=== PATIENT | male | born 1945 | race Hispanic/Latino ===

== ENCOUNTER 2020-06-13 14:12 | Inpatient (IN) | payer MEDICARE, OTHER ==
[2020-06-13 14:28] LABS: Hematocrit 40.2 % (35.5-45.6); Hemoglobin 12.8 gm/dl (11.8-15.2); Mean Corpuscular HGB Conc 32 % (32-34); Mean Corpuscular Volume 101 fl (84-94); Platelet Count 207 K/mm3 (140-440); Red Blood Count 3.98 M/mm3 (3.65-5.03); Red Cell Distribution Width 19.1 % (13.2-15.2)
[2020-06-13 14:36] LABS: Basophils # (Auto) 0.1 K/mm3 (0.0-0.1); Eosinophils # (Auto) 0.3 K/mm3 (0.0-0.4); Monocytes # (Auto) 0.8 K/mm3 (0.0-0.8); Monocytes % (Auto) 6.1 % (0.0-7.3)
[2020-06-13 14:37] LABS: INR 1.36 (0.87-1.13)
[2020-06-13 14:38] LABS: Partial Thromboplastin Time 48.3 Sec. (24.2-36.6)
[2020-06-13 14:46] LABS: Alanine Aminotransferase 35 units/L (7-56); Albumin 2.7 g/dL (3.9-5); BUN/Creatinine Ratio 12; Blood Urea Nitrogen 18 mg/dL (9-20); Calcium 8.4 mg/dL (8.4-10.2); Hemolysis Index 53
--- NOTE | 2020-06-13 14:47 | Emergency Department Report ---
ED CPR HPI - General Stated Complaint: CARDIAC ARREST Time Seen by Provider: 06/13/20 14:14 - History of Present Illness Initial Comments: Patient is 74-year-old male with unknown past medical history. Patient brought to the emergency room via EMS from a local gas station in a full cardiac arrest. EMS stated that patient went to the [facility] and collapse all of a sudden. EMS stated that initially patient is asystole but they informed that the patient has been shocked twice and get amiodarone 300 mg. Unclear if the patient went into V. fib or V. tach for arrest. Patient regained his circulation after the second shock. Upon arrival to the ER patient became pulseless again with monitoring showing PEA. ACLS protocol continued in the emergency room. Intubation confirmed by me with good breath sound on both sides. Patient able to regain his pulse for a few minutes and lost again. ACLS continued and patient regained his pulse for the third time. Patient started on amiodarone. Right internal jugular central vein placed by me and patient started on Levophed. For further information please refer to code sheet. Complaint: collapsed during activity Place: other (Gas-distention) Bystander CPR Performed: No AED Applied by Bystander/Review Nurse: No Downtime Before ACLS Arrival (mins): 6 Initial Findings in the Field: no pulse, systole ROSC in the Field: Yes Associated Injuries: No Treatments Prior to Arrival: intubation, defribrillated shocks # ED Review of Systems ROS: Stated complaint: CARDIAC ARREST Other details as noted in HPI Comment: Unobtainable due to pts medical conditions ED Physical Exam - General General appearance: other (CPR in progress.) - Head Head exam: Present: atraumatic - Eye Pupils: Present: other (4 mm fixed and dilated.) - Respiratory Respiratory exam: Present: other (No spontaneous breathing.) - Cardiovascular Cardiovascular Exam: Present: other (No spontaneous heart tone.) ED Course Vital Signs 06/13/20 14:40 Pulse Rate 86 Blood Pressure 153/63 O2 Sat by Pulse 91 Oximetry - Central Line Placement Right IJ Consent Obtained: emergent situation Time Out Performed: Yes Patient Placed on Monitor/Pulse Ox: Yes Prep: mask, gown, gloves Central Line Prep: Povidone-Iodine 1%, Chlorhexidine scrub, sterile drapes applied Local Anesthesia Used: Lidocaine 1% Ultrasound Used for Placement: Yes Central Line Lumen Inserted: triple Bloods Obtained for Lab: Yes Central Line Position: good blood return, all ports aspirated, flus, sutured in place with 2-0 Dressing Applied: Tegaderm, sterile gauze/tape Post Procedure X-Ray: tip of catheter in good p Patient Tolerated Procedure: well, no complications Complications: none ED Medical Decision Making - Lab Data Result diagrams: 06/13/20 14:20 06/13/20 14:20 - EKG Data -: EKG Interpreted by Me EKG shows normal: sinus rhythm Rate: tachycardia - EKG Data Interpretation: no acute changes - Radiology Data Radiology results: report reviewed - Medical Decision Making Patient is 74-year-old male with unknown past medical history. Patient brought to the emergency room via EMS from a local gas station in a full cardiac arrest. 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 EMS stated that initially patient is asystole but they informed that the patient has been shocked twice and get amiodarone 300 mg. Unclear if the patient went into V. fib or V. tach for arrest. Patient regained his circulation after the second shock. Upon arrival to the ER patient became pulseless again with monitoring showing PEA. ACLS protocol continued in the emergency room. Intubation confirmed by me with good breath sound on both sides. Patient able to regain his pulse for a few minutes and lost again. ACLS continued and patient regained his pulse for the third time. Patient started on amiodarone. Right internal jugular central vein placed by me and patient started on Levophed. For further information please refer to code sheet. Labs reviewed and is unremarkable. CT brain is pending. I discussed the patient with Dr. Dobson, he agreed to admit the patient to medical service. Critical Care Time: Yes Critical care time in (mins) excluding proc time.: 45 Critical care attestation.: If time is entered above; I have spent that time in minutes in the direct care of this critically ill patient, excluding procedure time. ED Disposition Clinical Impression: Cardiopulmonary arrest Disposition: OP ADMIT IP TO THIS HOSP Is pt being admited?: Yes Condition: Stable Referrals: PRIMARY CARE, [Primary Care Provider] - 3-5 Days
[2020-06-13 14:48] LABS: Bilirubin,Direct < 0.2 mg/dL (0-0.2)
[2020-06-13] MEDS ORDERED: LIP THERAPY VASELINE TP PRN (15:11)
[2020-06-13] MEDS ORDERED: MINERAL OIL/PETROLATUM, WHITE OPHTH OINT 3.5 GM OU PRN (15:11)
[2020-06-13] MEDS: NORepinephrine/NS 4 MG-250 ML 4 MG/250 ML BAG IV SCH (15:51)
--- NOTE | 2020-06-13 15:51 | XRay Report ---
CHEST 1 VIEW 06/13/2020 2:32 PM INDICATION / CLINICAL INFORMATION: ETT placement/RIGHT IJ CENTRAL ILINE. COMPARISON: None available. FINDINGS: SUPPORT DEVICES: Endotracheal tube and right IJ central venous catheter in satisfactory position. No pneumothorax. HEART / MEDIASTINUM: No significant abnormality. LUNGS / PLEURA: Mild diffuse bilateral interstitial disease. No localized infiltrate or pleural fluid . ADDITIONAL FINDINGS: Prominent gastric distention. IMPRESSION: 1. Lines and tubes in satisfactory position. 2. Increased interstitial markings bilaterally. It is uncertain if this is an acute process or repres ents chronic change. Signer Name: Richard Belcher MD Signed: 06/13/2020 3:46 PM Workstation Name: [id number]
[2020-06-13 16:00] LABS: Basophils % (Manual) 0 % (0.0-1.8); Total Cells Counted 100
[2020-06-13] MEDS ORDERED: AMIODARONE 900 MG in DEXTROSE 5% IN WATER 482 ML IV SCH (16:00)
[2020-06-13 16:01] LABS: Anisocytosis RARE
[2020-06-13 16:35] LABS: ABG Base Excess -10.9 mmol/L (-2.0-3.0); ABG HCO3 16.2 mmol/L (20.0-26.0); ABG Methemoglobin 0.4 % (0.0-1.5); ABG Oxygen Saturation 95.3 % (95.0-99.0); ABG PCO2 40.2 mm Hg; ABG PH 7.222 pH Units (7.350-7.450)
[2020-06-13 18:27] LABS: Chol/HDL Ratio 2.2 %
--- NOTE | 2020-06-13 19:17 | History and Physical Report ---
History of Present Illness Date of examination: 06/13/20 Date of admission: 06/13/20 15:46 Chief complaint: Cardiac arrest [place] History of present illness: Patient is 74-year-old male with unknown past medical history. Patient brought to the emergency room via EMS from a local gas station in a full cardiac arrest. EMS stated that patient went to the [facility] and collapse all of a sudden. EMS stated that initially patient is asystole but they informed that the patient has been shocked twice and get amiodarone 300 mg. Unclear if the patient went into V. fib or V. tach for arrest. Patient regained his circulation after the second shock. Upon arrival to the ER patient became pulseless again with monitoring showing PEA. ACLS protocol continued in the emergency room. Intubation confirmed by me with good breath sound on both sides. Patient able to regain his pulse for a few minutes and lost again. ACLS continued and patient regained his pulse for the third time. Patient started on amiodarone. Right internal jugular central vein placed by ED physician Dr Slater and patient started on Levophed. For further information please refer to code sheet. MD Complaint: collapsed during activity Place: other (Gas-distention) Bystander CPR Performed: No AED Applied by Bystander/Crib Tender: No Downtime Before ACLS Arrival (mins): 6 Initial Findings in the Field: no pulse, systole ROSC in the Field: Yes Associated Injuries: No Treatments Prior to Arrival: intubation, defribrillated shocks # Past History Past Medical History: other (Not available) Past Surgical History: Other (Not availabke) Social history: lives with family, full code Family history: other (Not available) Medications and Allergies Allergies Allergy/AdvReac Type Severity Reaction Status Date / Time Unable to Assess Allergy Unverified 06/13/20 17:34 Active Meds: Active Medications Hydrophilic Ointment (Vaseline Lip Therapy) 1 applic TP Q2HR PRN PRN Reason: Dry Lips Propofol (Propofol) 500 mg in 50 mls @ 0 mls/hr IV TITR DARREN; Protocol Norepinephrine (Levophed Drip 4 Mg/Ns 250 Ml) 4 mg in 250 mls @ 7.5 mls/hr IV TITR DARREN; Protocol Last Admin: 06/13/20 15:51 Dose: 2 mcg/min, 7.5 mls/hr Documented by: Amiodarone HCl 900 mg/ (Dextrose) 500 mls @ 33.333 mls/hr IV DIRECT DARREN; Protocol Multi-Ingred Cream/Lotion/Oil/Oint (Artificial Tears Ophth Oint) 1 applic OU Q4HR PRN PRN Reason: Dry Eye(s) Review of Systems All systems: negative Cardiovascular: other (Cardiac arrest in gas station and rvived by Ems and ED in [facility]) Neurological: other (Jerky movements ) Exam - Constitutional Vitals: Temp Pulse Resp BP Pulse Ox 92 H 36 H 96/48 95 06/13/20 18:16 06/13/20 18:16 06/13/20 18:16 06/13/20 18:16 General appearance: Present: severe distress (Patient intubated), well-nourished - Neck Neck: Present: supple, normal ROM - Respiratory Respiratory effort: normal Respiratory: bilateral: CTA - Cardiovascular Heart rate: 120 Rhythm: regular Heart Sounds: Present: S1 & S2. Absent: rub, click - Extremities Extremities: pulses symmetrical, No edema Peripheral Pulses: within normal limits - Abdominal General gastrointestinal: Present: soft, non-tender, non-distended, normal bowel sounds Male genitourinary: Present: normal - Integumentary Integumentary: Present: clear, warm, dry - Musculoskeletal Musculoskeletal: gait normal, strength equal bilaterally - Psychiatric Psychiatric: appropriate mood/affect, intact judgment & insight - Neurologic Neurologic: CNII-XII intact, moves all extremities HEART Score - HEART Score History: Highly suspicious EKG: Non-specific Age: > 65 Troponin: Troponin T 0.062 ng/mL (0.00-0.029) H D 06/13/20 16:52 Troponin: 1-3x normal limit Results - Labs CBC & Chem 7: 06/14/20 00:14 06/13/20 14:20 Labs: Laboratory Last Values WBC 14.1 K/mm3 (4.5-11.0) H 06/13/20 14:20 RBC 3.98 M/mm3 (3.65-5.03) 06/13/20 14:20 Hgb 12.8 gm/dl (11.8-15.2) 06/13/20 14:20 Hct 40.2 % (35.5-45.6) 06/13/20 14:20 MCV 101 fl (84-94) H 06/13/20 14:20 MCH 32 pg (28-32) 06/13/20 14:20 MCHC 32 % (32-34) 06/13/20 14:20 RDW 19.1 % (13.2-15.2) H 06/13/20 14:20 Plt Count 207 K/mm3 (140-440) 06/13/20 14:20 [place] % (Auto) 6.1 % (0.0-7.3) 06/13/20 14:20 Eos % (Auto) 2.0 % (0.0-4.3) 06/13/20 14:20 [place] # (Auto) 0.8 K/mm3 (0.0-0.8) 06/13/20 14:20 Eos # (Auto) 0.3 K/mm3 (0.0-0.4) 06/13/20 14:20 Baso # (Auto) 0.1 K/mm3 (0.0-0.1) 06/13/20 14:20 Add Manual Diff Complete 06/13/20 14:20 Total Counted 100 06/13/20 14:20 Seg Neutrophils % 59.0 % (40.0-70.0) 06/13/20 14:20 Seg Neuts % (Manual) 64.0 % (40.0-70.0) 06/13/20 14:20 Band Neutrophils % 0 % 06/13/20 14:20 Lymphocytes % (Manual) 30.0 % (13.4-35.0) 06/13/20 14:20 Reactive Lymphs % (Man) 0 % 06/13/20 14:20 Monocytes % (Manual) 4.0 % (0.0-7.3) 06/13/20 14:20 Eosinophils % (Manual) 2.0 % (0.0-4.3) 06/13/20 14:20 Basophils % (Manual) 0 % (0.0-1.8) 06/13/20 14:20 Metamyelocytes % 0 % 06/13/20 14:20 Myelocytes % 0 % 06/13/20 14:20 Promyelocytes % 0 % 06/13/20 14:20 Blast Cells % 0 % 06/13/20 14:20 Nucleated RBC % Not Reportable 06/13/20 14:20 Seg Neutrophils # 8.3 K/mm3 (1.8-7.7) H 06/13/20 14:20 Seg Neutrophils # Man 9.0 K/mm3 (1.8-7.7) H 06/13/20 14:20 Band Neutrophils # 0.0 K/mm3 06/13/20 14:20 Lymphocytes # (Manual) 4.2 K/mm3 (1.2-5.4) 06/13/20 14:20 Abs React Lymphs (Man) 0.0 K/mm3 06/13/20 14:20 Monocytes # (Manual) 0.6 K/mm3 (0.0-0.8) 06/13/20 14:20 Eosinophils # (Manual) 0.3 K/mm3 (0.0-0.4) 06/13/20 14:20 Basophils # (Manual) 0.0 K/mm3 (0.0-0.1) 06/13/20 14:20 Metamyelocytes # 0.0 K/mm3 06/13/20 14:20 Myelocytes # 0.0 K/mm3 06/13/20 14:20 Promyelocytes # 0.0 K/mm3 06/13/20 14:20 Blast Cells # 0.0 K/mm3 06/13/20 14:20 WBC Morphology Not Reportable 06/13/20 14:20 Hypersegmented Neuts Not Reportable 06/13/20 14:20 Hyposegmented Neuts Not Reportable 06/13/20 14:20 Hypogranular Neuts Not Reportable 06/13/20 14:20 Smudge Cells Not Reportable 06/13/20 14:20 Toxic Granulation Not Reportable 06/13/20 14:20 Toxic Vacuolation Not Reportable 06/13/20 14:20 Dohle Bodies Not Reportable 06/13/20 14:20 Pelger-Huet Anomaly Not Reportable 06/13/20 14:20 Casey Rods Not Reportable 06/13/20 14:20 Platelet Estimate Not Reportable 06/13/20 14:20 Clumped Platelets Not Reportable 06/13/20 14:20 Plt Clumps, EDTA Not Reportable 06/13/20 14:20 Large Platelets Not Reportable 06/13/20 14:20 Giant Platelets Not Reportable 06/13/20 14:20 Platelet Satelliting Not Reportable 06/13/20 14:20 Plt Morphology Comment Not Reportable 06/13/20 14:20 RBC Morphology Not Reportable 06/13/20 14:20 Dimorphic RBCs Not Reportable 06/13/20 14:20 Polychromasia Not Reportable 06/13/20 14:20 Hypochromasia Not Reportable 06/13/20 14:20 Poikilocytosis Not Reportable 06/13/20 14:20 Anisocytosis Rare 06/13/20 14:20 Microcytosis Rare 06/13/20 14:20 Macrocytosis Not Reportable 06/13/20 14:20 Spherocytes Not Reportable 06/13/20 14:20 Pappenheimer Bodies Not Reportable 06/13/20 14:20 Sickle Cells Not Reportable 06/13/20 14:20 Target Cells Not Reportable 06/13/20 14:20 Tear Drop Cells Not Reportable 06/13/20 14:20 Ovalocytes Not Reportable 06/13/20 14:20 Helmet Cells Not Reportable 06/13/20 14:20 Chandra-Chaires Bodies Not Reportable 06/13/20 14:20 Elton Rings Not Reportable 06/13/20 14:20 [place] Cells Not Reportable 06/13/20 14:20 Bite Cells Not Reportable 06/13/20 14:20 Crenated Cell Not Reportable 06/13/20 14:20 Elliptocytes Not Reportable 06/13/20 14:20 Acanthocytes (Spur) Not Reportable 06/13/20 14:20 Rouleaux Not Reportable 06/13/20 14:20 Hemoglobin C Crystals Not Reportable 06/13/20 14:20 Schistocytes Not Reportable 06/13/20 14:20 Malaria parasites Not Reportable 06/13/20 14:20 Edgardo Bodies Not Reportable 06/13/20 14:20 Hem Pathologist Commnt No 06/13/20 14:20 PT 16.8 Sec. (12.2-14.9) H 06/13/20 14:20 INR 1.36 (0.87-1.13) H 06/13/20 14:20 APTT 48.3 Sec. (24.2-36.6) H 06/13/20 14:20 ABG pH 7.222 pH Units (7.350-7.450) L 06/13/20 16:15 ABG pCO2 40.2 mm Hg 06/13/20 16:15 ABG pO2 92.0 mm Hg (80.0-90.0) H 06/13/20 16:15 ABG HCO3 16.2 mmol/L (20.0-26.0) L 06/13/20 16:15 ABG O2 Saturation 95.3 % (95.0-99.0) 06/13/20 16:15 ABG O2 Content 17.2 (0.0-44) 06/13/20 16:15 ABG Base Excess -10.9 mmol/L (-2.0-3.0) L 06/13/20 16:15 ABG Hemoglobin 13.0 gm/dl (14.0-18.0) L 06/13/20 16:15 ABG Carboxyhemoglobin 1.3 % (0.0-5.0) 06/13/20 16:15 ABG Methemoglobin 0.4 % (0.0-1.5) 06/13/20 16:15 Oxyhemoglobin 93.7 % (95.0-99.0) L 06/13/20 16:15 FiO2 100 % 06/13/20 16:15 Sodium 140 mmol/L (137-145) 06/13/20 14:20 Potassium 4.0 mmol/L (3.6-5.0) 06/13/20 14:20 Chloride 102.2 mmol/L (98-107) 06/13/20 14:20 Carbon Dioxide 19 mmol/L (22-30) L 06/13/20 14:20 Anion Gap 23 mmol/L 06/13/20 14:20 BUN 18 mg/dL (9-20) 06/13/20 14:20 Creatinine 1.5 mg/dL (0.8-1.3) H 06/13/20 14:20 Estimated GFR 46 ml/min 06/13/20 14:20 BUN/Creatinine Ratio 12 % 06/13/20 14:20 Glucose 246 mg/dL (75-100) H 06/13/20 14:20 Calcium 8.4 mg/dL (8.4-10.2) 06/13/20 14:20 Total Bilirubin 0.30 mg/dL (0.1-1.2) 06/13/20 14:20 Direct Bilirubin < 0.2 mg/dL (0-0.2) 06/13/20 14:20 Indirect Bilirubin 0.1 mg/dL 06/13/20 14:20 AST 53 units/L (5-40) H 06/13/20 14:20 ALT 35 units/L (7-56) 06/13/20 14:20 Alkaline Phosphatase 75 units/L (35-129) 06/13/20 14:20 Troponin T 0.062 ng/mL (0.00-0.029) H D 06/13/20 16:52 Total Protein 5.7 g/dL (6.3-8.2) L 06/13/20 14:20 Albumin 2.7 g/dL (3.9-5) L 06/13/20 14:20 Albumin/Globulin Ratio 0.9 % 06/13/20 14:20 Triglycerides 74 mg/dL (2-149) 06/13/20 16:52 Cholesterol 88 mg/dL (50-199) 06/13/20 16:52 LDL Cholesterol Direct 41 mg/dL (50-130) L 06/13/20 16:52 HDL Cholesterol 40 mg/dL (40-59) 06/13/20 16:52 Cholesterol/HDL Ratio 2.20 % 06/13/20 16:52 Short CBC 06/13/20 Range/Units 14:20 WBC 14.1 H (4.5-11.0) K/mm3 Hgb 12.8 (11.8-15.2) gm/dl Hct 40.2 (35.5-45.6) % Plt Count 207 (140-440) K/mm3 BMP 06/13/20 14:20 Sodium 140 Potassium 4.0 Chloride 102.2 Carbon Dioxide 19 L BUN 18 Creatinine 1.5 H Glucose 246 H Calcium 8.4 Cardiac Enzymes 06/13/20 06/13/20 Range/Units 14:20 16:52 Troponin T < 0.010 0.062 H D (0.00-0.029) ng/mL Liver Function 06/13/20 Range/Units 14:20 Total Bilirubin 0.30 (0.1-1.2) mg/dL Direct Bilirubin < 0.2 (0-0.2) mg/dL AST 53 H (5-40) units/L ALT 35 (7-56) units/L Alkaline Phosphatase 75 (35-129) units/L Albumin 2.7 L (3.9-5) g/dL Short CBC 06/13/20 06/14/20 Range/Units 14:20 00:14 WBC 14.1 H (4.5-11.0) K/mm3 Hgb 12.8 13.1 (11.8-15.2) gm/dl Hct 40.2 40.3 (35.5-45.6) % Plt Count 207 233 (140-440) K/mm3 BMP 06/13/20 14:20 Sodium 140 Potassium 4.0 Chloride 102.2 Carbon Dioxide 19 L BUN 18 Creatinine 1.5 H Glucose 246 H Calcium 8.4 Cardiac Enzymes 06/13/20 06/13/20 06/13/20 Range/Units 14:20 16:52 20:57 Troponin T < 0.010 0.062 H D 0.176 H* D (0.00-0.029) ng/mL Liver Function 06/13/20 Range/Units 14:20 Total Bilirubin 0.30 (0.1-1.2) mg/dL Direct Bilirubin < 0.2 (0-0.2) mg/dL AST 53 H (5-40) units/L ALT 35 (7-56) units/L Alkaline Phosphatase 75 (35-129) units/L Albumin 2.7 L (3.9-5) g/dL - Imaging and Cardiology EKG: report reviewed (Sinus tachycardia) Chest x-ray: report reviewed (NAF) CT Scan - head: report reviewed (NAF) [place]/IV: IV Catheter Type [Right INT / Saline Lock Antecubital] Assessment and Plan Advance Directives: Yes (Full code) VTE prophylaxis?: Chemical Plan of care discussed with patient/family: Yes - Patient Problems (1) Respiratory failure with hypoxia Current Visit: Yes Status: Acute Qualifiers: Chronicity: acute Qualified Code(s): J96.01 - Acute respiratory failure with hypoxia Plan to address problem: S/p cardiac arrest intubated Vent support Piper Installer consult (2) Cardiopulmonary arrest Current Visit: Yes Status: Acute Plan to address problem: Patient revived and on Pressors Intubated Sedated (3) Anoxic encephalopathy Current Visit: Yes Status: Acute Plan to address problem: Highly likely Given sudden collapse and revival by EMS Neuro consult (4) NSTEMI (non-ST elevated myocardial infarction) Current Visit: Yes Status: Acute Plan to address problem: Patient on Heparin drip Troponins elevated [place] of Cardiac arrest maybe vfib/severe CAD On Amiodarone drip On Levophed drip Discussed DNR with daughter She wants everything done Cardiology consult (5) Hypotension Current Visit: Yes Status: Acute Plan to address problem: Cont Levophed (6) Seizure disorder Current Visit: Yes Status: Acute Plan to address problem: Patient has jerky movements constantly Initiated on Ativan q1h and IV Keppra Neuro consult (7) DVT prophylaxis Current Visit: Yes Status: Acute Plan to address problem: On Heparin drip and Gi prophylaxis
[2020-06-13] MEDS ORDERED: LORazepam 2 MG/ML VIAL IV PRN (19:51)
[2020-06-13] MEDS ORDERED: LORazepam 2 MG/ML VIAL ONE (20:02)
[2020-06-13] MEDS ORDERED: EPINEPHrine 1 MG/10 ML SYRINGE ONE (20:06)
[2020-06-13] MEDS ORDERED: SODIUM BICARB 8.4% 50 MEQ/50 ML SYRINGE IV ONE (20:06)
--- NOTE | 2020-06-13 21:01 | Cat Scan Report ---
CT head/brain wo con INDICATION / CLINICAL INFORMATION: 74 years Male; AMS. TECHNIQUE: Routine CT head without contrast. All CT scans at this location are performed using CT dos e reduction for ALARA by means of automated exposure control. Motion artifact. COMPARISON: None. FINDINGS: BRAIN / INTRACRANIAL CONTENTS: No acute hemorrhage, mass effect, midline shift, hydrocephalus, or acu te, large territorial infarct. Mild cerebral atrophy. There are mild areas of decreased attenuation in the white matter of the cerebral hemispheres. These are nonspecific findings and may be related to microangiopathy (hypertension, diabetes, atheroscleros is), given the patient's age. It might be difficult to evaluate for small areas of ischemia without d iffusion imaging by MRI. CRANIOCERVICAL JUNCTION: No significant abnormality. ORBITS: No significant abnormality of visualized orbits. SINUSES / MASTOIDS: No significant abnormality in the visualized paranasal sinuses or mastoid air dereck ls. ADDITIONAL FINDINGS: Atherosclerotic disease is seen in the anterior and posterior circulation. NG tube noted. IMPRESSION: 1. No focal mass, hemorrhage, hydrocephalus, or acute, large territorial infarct. Study limited by mo tion. Signer Name: Silvino Orr MD, III Signed: 06/13/2020 8:56 PM Workstation Name: [employer]
[2020-06-13] MEDS ORDERED: PROPOFOL 500 MG/50 ML VIAL IV ONE (21:43)
[2020-06-13] MEDS ORDERED: levETIRAcetam 1000 MG/NS 0.75% 0 MG/0 ML BAG IV ONE (22:09)
[2020-06-13] MEDS: PROPOFOL 500 MG/50 ML VIAL IV SCH (22:15)
[2020-06-13] MEDS: levETIRAcetam 1,000 MG in DEXTROSE 5% IN WATER 100 ML IV SCH (22:33)
[2020-06-13] MEDS ORDERED: MORPHINE 2 MG/1 ML INJ IV PRN (22:48)
[2020-06-13] MEDS ORDERED: METOCLOPRAMIDE 10 MG/2 ML INJ IV PRN (22:48)
[2020-06-13] MEDS ORDERED: ONDANSETRON 4 MG/2 ML INJ IV PRN (22:48)
[2020-06-13] MEDS ORDERED: ACETAMINOPHEN 325 MG TAB PO PRN (22:48)
--- NOTE | 2020-06-13 22:48 | History and Physical Report ---
History of Present Illness Date of examination: 06/13/20 Date of admission: 06/13/20 15:46 Medications and Allergies Allergies Allergy/AdvReac Type Severity Reaction Status Date / Time Unable to Assess Allergy Unverified 06/13/20 17:34 Active Meds: Active Medications Hydrophilic Ointment (Vaseline Lip Therapy) 1 applic TP Q2HR PRN PRN Reason: Dry Lips Propofol (Propofol) 500 mg in 50 mls @ 2.379 mls/hr IV TITR DARREN; Protocol Last Admin: 06/13/20 22:15 Dose: 5 mcg/kg/min, 2.379 mls/hr Documented by: Norepinephrine (Levophed Drip 4 Mg/Ns 250 Ml) 4 mg in 250 mls @ 7.5 mls/hr IV TITR DARREN; Protocol Last Admin: 06/13/20 15:51 Dose: 2 mcg/min, 7.5 mls/hr Documented by: Amiodarone HCl 900 mg/ (Dextrose) 500 mls @ 33.333 mls/hr IV DIRECT DARREN; Protocol Levetiracetam 1,000 mg/ (Dextrose) 110 mls @ 400 mls/hr IV Q12HR DARREN Last Admin: 06/13/20 22:33 Dose: 400 mls/hr Documented by: Lorazepam (Ativan) 1 mg IV Q1H PRN PRN Reason: Agitation Last Admin: 06/13/20 20:59 Dose: 1 mg Documented by: Multi-Ingred Cream/Lotion/Oil/Oint (Artificial Tears Ophth Oint) 1 applic OU Q4HR PRN PRN Reason: Dry Eye(s) Exam - Constitutional Vitals: Temp Pulse Resp BP Pulse Ox 81 36 H 96/48 100 06/13/20 20:36 06/13/20 18:16 06/13/20 18:16 06/13/20 20:36 General appearance: Present: no acute distress, well-nourished - EENT Eyes: Present: PERRL ENT: hearing intact, clear oral mucosa - Neck Neck: Present: supple, normal ROM - Respiratory Respiratory effort: normal Respiratory: bilateral: CTA - Cardiovascular Heart Sounds: Present: S1 & S2. Absent: rub, click - Extremities Extremities: pulses symmetrical, No edema Peripheral Pulses: within normal limits - Abdominal General gastrointestinal: Present: soft, non-tender, non-distended, normal bowel sounds Male genitourinary: Present: normal - Integumentary Integumentary: Present: clear, warm, dry - Musculoskeletal Musculoskeletal: gait normal, strength equal bilaterally - Psychiatric Psychiatric: appropriate mood/affect, intact judgment & insight - Neurologic Neurologic: CNII-XII intact, moves all extremities HEART Score - HEART Score Troponin: Troponin T 0.176 ng/mL (0.00-0.029) H* D 06/13/20 20:57 Results - Labs CBC & Chem 7: 06/13/20 14:20 06/13/20 14:20 Labs: Laboratory Last Values WBC 14.1 K/mm3 (4.5-11.0) H 06/13/20 14:20 RBC 3.98 M/mm3 (3.65-5.03) 06/13/20 14:20 Hgb 12.8 gm/dl (11.8-15.2) 06/13/20 14:20 Hct 40.2 % (35.5-45.6) 06/13/20 14:20 MCV 101 fl (84-94) H 06/13/20 14:20 MCH 32 pg (28-32) 06/13/20 14:20 MCHC 32 % (32-34) 06/13/20 14:20 RDW 19.1 % (13.2-15.2) H 06/13/20 14:20 Plt Count 207 K/mm3 (140-440) 06/13/20 14:20 [place] % (Auto) 6.1 % (0.0-7.3) 06/13/20 14:20 Eos % (Auto) 2.0 % (0.0-4.3) 06/13/20 14:20 [place] # (Auto) 0.8 K/mm3 (0.0-0.8) 06/13/20 14:20 Eos # (Auto) 0.3 K/mm3 (0.0-0.4) 06/13/20 14:20 Baso # (Auto) 0.1 K/mm3 (0.0-0.1) 06/13/20 14:20 Add Manual Diff Complete 06/13/20 14:20 Total Counted 100 06/13/20 14:20 Seg Neutrophils % 59.0 % (40.0-70.0) 06/13/20 14:20 Seg Neuts % (Manual) 64.0 % (40.0-70.0) 06/13/20 14:20 Band Neutrophils % 0 % 06/13/20 14:20 Lymphocytes % (Manual) 30.0 % (13.4-35.0) 06/13/20 14:20 Reactive Lymphs % (Man) 0 % 06/13/20 14:20 Monocytes % (Manual) 4.0 % (0.0-7.3) 06/13/20 14:20 Eosinophils % (Manual) 2.0 % (0.0-4.3) 06/13/20 14:20 Basophils % (Manual) 0 % (0.0-1.8) 06/13/20 14:20 Metamyelocytes % 0 % 06/13/20 14:20 Myelocytes % 0 % 06/13/20 14: Promyelocytes % 0 % 06/13/20 14: Blast Cells % 0 % 06/13/20 14: Nucleated RBC % Not Reportable 06/13/20 14:20 Seg Neutrophils # 8.3 K/mm3 (1.8-7.7) H 06/13/20 14:20 Seg Neutrophils # Man 9.0 K/mm3 (1.8-7.7) H 06/13/20 14:20 Band Neutrophils # 0.0 K/mm3 06/13/20 14:20 Lymphocytes # (Manual) 4.2 K/mm3 (1.2-5.4) 06/13/20 14:20 Abs React Lymphs (Man) 0.0 K/mm3 06/13/20 14:20 Monocytes # (Manual) 0.6 K/mm3 (0.0-0.8) 06/13/20 14:20 Eosinophils # (Manual) 0.3 K/mm3 (0.0-0.4) 06/13/20 14:20 Basophils # (Manual) 0.0 K/mm3 (0.0-0.1) 06/13/20 14:20 Metamyelocytes # 0.0 K/mm3 06/13/20 14:20 Myelocytes # 0.0 K/mm3 06/13/20 14:20 Promyelocytes # 0.0 K/mm3 06/13/20 14:20 Blast Cells # 0.0 K/mm3 06/13/20 14:20 WBC Morphology Not Reportable 06/13/20 14:20 Hypersegmented Neuts Not Reportable 06/13/20 14:20 Hyposegmented Neuts Not Reportable 06/13/20 14:20 Hypogranular Neuts Not Reportable 06/13/20 14:20 Smudge Cells Not Reportable 06/13/20 14:20 Toxic Granulation Not Reportable 06/13/20 14:20 Toxic Vacuolation Not Reportable 06/13/20 14:20 Dohle Bodies Not Reportable 06/13/20 14:20 Pelger-Huet Anomaly Not Reportable 06/13/20 14:20 Casey Rods Not Reportable 06/13/20 14:20 Platelet Estimate Not Reportable 06/13/20 14:20 Clumped Platelets Not Reportable 06/13/20 14:20 Plt Clumps, EDTA Not Reportable 06/13/20 14:20 Large Platelets Not Reportable 06/13/20 14:20 Giant Platelets Not Reportable 06/13/20 14:20 Platelet Satelliting Not Reportable 06/13/20 14:20 Plt Morphology Comment Not Reportable 06/13/20 14:20 RBC Morphology Not Reportable 06/13/20 14:20 Dimorphic RBCs Not Reportable 06/13/20 14:20 Polychromasia Not Reportable 06/13/20 14:20 Hypochromasia Not Reportable 06/13/20 14:20 Poikilocytosis Not Reportable 06/13/20 14:20 Anisocytosis Rare 06/13/20 14:20 Microcytosis Rare 06/13/20 14:20 Macrocytosis Not Reportable 06/13/20 14:20 Spherocytes Not Reportable 06/13/20 14:20 Pappenheimer Bodies Not Reportable 06/13/20 14:20 Sickle Cells Not Reportable 06/13/20 14:20 Target Cells Not Reportable 06/13/20 14:20 Tear Drop Cells Not Reportable 06/13/20 14:20 Ovalocytes Not Reportable 06/13/20 14:20 Helmet Cells Not Reportable 06/13/20 14:20 Chandra-[place] Bodies Not Reportable 06/13/20 14:20 [place] Rings Not Reportable 06/13/20 14:20 Juanita Cells Not Reportable 06/13/20 14:20 Bite Cells Not Reportable 06/13/20 14:20 Crenated Cell Not Reportable 06/13/20 14:20 Elliptocytes Not Reportable 06/13/20 14:20 Acanthocytes (Spur) Not Reportable 06/13/20 14:20 Rouleaux Not Reportable 06/13/20 14:20 Hemoglobin C Crystals Not Reportable 06/13/20 14:20 Schistocytes Not Reportable 06/13/20 14:20 Malaria parasites Not Reportable 06/13/20 14:20 Edgardo Bodies Not Reportable 06/13/20 14:20 Hem Pathologist Commnt No 06/13/20 14:20 PT 16.8 Sec. (12.2-14.9) H 06/13/20 14:20 INR 1.36 (0.87-1.13) H 06/13/20 14:20 APTT 48.3 Sec. (24.2-36.6) H 06/13/20 14:20 ABG pH 7.222 pH Units (7.350-7.450) L 06/13/20 16:15 ABG pCO2 40.2 mm Hg 06/13/20 16:15 ABG pO2 92.0 mm Hg (80.0-90.0) H 06/13/20 16:15 ABG HCO3 16.2 mmol/L (20.0-26.0) L 06/13/20 16:15 ABG O2 Saturation 95.3 % (95.0-99.0) 06/13/20 16:15 ABG O2 Content 17.2 (0.0-44) 06/13/20 16:15 ABG Base Excess -10.9 mmol/L (-2.0-3.0) L 06/13/20 16:15 ABG Hemoglobin 13.0 gm/dl (14.0-18.0) L 06/13/20 16:15 ABG Carboxyhemoglobin 1.3 % (0.0-5.0) 06/13/20 16:15 ABG Methemoglobin 0.4 % (0.0-1.5) 06/13/20 16:15 Oxyhemoglobin 93.7 % (95.0-99.0) L 06/13/20 16:15 FiO2 100 % 06/13/20 16:15 Sodium 140 mmol/L (137-145) 06/13/20 14:20 Potassium 4.0 mmol/L (3.6-5.0) 06/13/20 14:20 Chloride 102.2 mmol/L (98-107) 06/13/20 14:20 Carbon Dioxide 19 mmol/L (22-30) L 06/13/20 14:20 Anion Gap 23 mmol/L 06/13/20 14:20 BUN 18 mg/dL (9-20) 06/13/20 14:20 Creatinine 1.5 mg/dL (0.8-1.3) H 06/13/20 14:20 Estimated GFR 46 ml/min 06/13/20 14:20 BUN/Creatinine Ratio 12 % 06/13/20 14:20 Glucose 246 mg/dL (75-100) H 06/13/20 14:20 Calcium 8.4 mg/dL (8.4-10.2) 06/13/20 14:20 Total Bilirubin 0.30 mg/dL (0.1-1.2) 06/13/20 14:20 Direct Bilirubin < 0.2 mg/dL (0-0.2) 06/13/20 14:20 Indirect Bilirubin 0.1 mg/dL 06/13/20 14:20 AST 53 units/L (5-40) H 06/13/20 14:20 ALT 35 units/L (7-56) 06/13/20 14:20 Alkaline Phosphatase 75 units/L (35-129) 06/13/20 14:20 Troponin T 0.176 ng/mL (0.00-0.029) H* D 06/13/20 20:57 Total Protein 5.7 g/dL (6.3-8.2) L 06/13/20 14:20 Albumin 2.7 g/dL (3.9-5) L 06/13/20 14:20 Albumin/Globulin Ratio 0.9 % 06/13/20 14:20 Triglycerides 74 mg/dL (2-149) 06/13/20 16:52 Cholesterol 88 mg/dL (50-199) 06/13/20 16:52 LDL Cholesterol Direct 41 mg/dL (50-130) L 06/13/20 16:52 HDL Cholesterol 40 mg/dL (40-59) 06/13/20 16:52 Cholesterol/HDL Ratio 2.20 % 06/13/20 16:52 - Imaging and Cardiology EKG: report reviewed [place]/IV: IV Catheter Type [Right INT / Saline Lock Antecubital] Assessment and Plan Advance Directives: Yes - Patient Problems (1) Cardiopulmonary arrest Current Visit: Yes Status: Acute
[2020-06-13] MEDS ORDERED: HEPARIN 10,000 UNITS/10 ML VIAL IV ONE ×2 (22:54→23:00)
[2020-06-13] MEDS ORDERED: LIPASE 10,500/PROTEASE 25,000/AMYLASE 43,750 (UNITS) DR CAP FEEDTUBE PRN (22:56)
[2020-06-13] MEDS ORDERED: SIMPLE SYRUP 15 ML FEEDTUBE PRN ×2 (22:56)
[2020-06-13] MEDS ORDERED: SODIUM BICARBONATE 325 MG TAB FEEDTUBE PRN (22:56)
[2020-06-13] MEDS ORDERED: IPRATROPIUM/ALBUTEROL SULFATE 3 ML AMPUL.NEB IH PRN (22:57)
[2020-06-13] MEDS ORDERED: FAMOTIDINE 20 MG/2 ML INJ IV SCH (23:00)
[2020-06-13] MEDS ORDERED: SODIUM CHLORIDE 0.9% 1000 ML 1,000 ML IV SCH (23:00)
[2020-06-13] MEDS ORDERED: ALBUTEROL 2.5 MG/3 ML NEBU IH PRN (23:07)
[2020-06-13] MEDS ORDERED: HEPARIN/ 0.45% NACL DRIP 25,000 UNIT/500 ML BAG ONE (23:51)
[2020-06-14 00:59] LABS: Hematocrit 40.3 % (35.5-45.6); Hemoglobin 13.1 gm/dl (11.8-15.2)
[2020-06-14 01:09] LABS: INR 1.4 (0.87-1.13)
[2020-06-14 01:10] LABS: Partial Thromboplastin Time 32.1 Sec. (24.2-36.6)
[2020-06-14] MEDS ORDERED: HEPARIN 10,000 UNITS/10 ML VIAL ONE (02:13)
[2020-06-14] MEDS: HEPARIN/ 0.45% NACL DRIP 25,000 UNIT/500 ML BAG IV SCH (02:41)
--- NOTE | 2020-06-14 04:31 | XRay Report ---
CHEST 1 VIEW INDICATION / CLINICAL INFORMATION: follow up respiratory failure. COMPARISON: Chest radiograph one day prior FINDINGS: SUPPORT DEVICES: Interval placement of an enteric tube coursing beneath the diaphragm with the tip no t visualized. Stable position of endotracheal tube and right IJ central venous catheter. HEART / MEDIASTINUM: Stable. LUNGS / PLEURA: Bilateral interstitial pulmonary opacities are not significantly changed from prior e xamination. No pneumothorax. ADDITIONAL FINDINGS: No significant additional findings. IMPRESSION: 1. Interval placement of an enteric tube coursing beneath the diaphragm with the tip not visualized. Otherwise no significant change Signer Name: Amy Bustillo MD Signed: 06/14/2020 4:26 AM Workstation Name: [id number]
[2020-06-14 04:39] LABS: ABG Base Excess -8.5 mmol/L (-2.0-3.0); ABG HCO3 17.9 mmol/L (20.0-26.0); ABG Methemoglobin 0.6 % (0.0-1.5); ABG Oxygen Saturation 99.3 % (95.0-99.0); ABG PCO2 39.9 mm Hg; ABG PH 7.269 pH Units (7.350-7.450); ABG PO2 242.9 mm Hg (80.0-90.0)
[2020-06-14] MEDS: PROPOFOL 500 MG/50 ML VIAL IV SCH (04:49)
[2020-06-14] MEDS ORDERED: DOPamine/D5W 800 MG/250 ML 800 MG/250 ML BAG IV SCH ×2 (07:00→14:00)
[2020-06-14] MEDS: NORepinephrine/NS 4 MG-250 ML 4 MG/250 ML BAG IV SCH (07:11)
[2020-06-14 07:47] LABS: Hematocrit 41.6 % (35.5-45.6); Hemoglobin 13.1 gm/dl (11.8-15.2); Mean Corpuscular HGB Conc 31 % (32-34); Mean Corpuscular Volume 100 fl (84-94); Platelet Count 244 K/mm3 (140-440); Red Blood Count 4.17 M/mm3 (3.65-5.03); Red Cell Distribution Width 19.9 % (13.2-15.2)
[2020-06-14 08:03] LABS: Creatine Kinase MB 12.4 ng/mL (0.0-4.0)
[2020-06-14 08:05] LABS: Albumin 3.2 g/dL (3.9-5); Calcium 7.9 mg/dL (8.4-10.2)
[2020-06-14] MEDS: IPRATROPIUM/ALBUTEROL SULFATE 3 ML AMPUL.NEB IH SCH ×4 (09:00→20:16)
[2020-06-14] MEDS ORDERED: CALCIUM CHLORIDE 1,000 MG/10 ML SYRINGE IV ONE ×4 (09:55→18:38)
[2020-06-14] MEDS ORDERED: SODIUM POLYSTYRENE 15 GM/60 ML ORAL LIQD PO ONE (09:55)
[2020-06-14] MEDS ORDERED: DEXTROSE 50% IN WATER (25GM) 50 ML SYRINGE IV ONE ×4 (09:55→18:38)
[2020-06-14] MEDS ORDERED: INSULIN REGULAR, HUMAN 100 UNITS/1 ML ONE ×2 (10:00→18:30)
[2020-06-14] MEDS ORDERED: INSULIN REGULAR, HUMAN 100 UNIT/ML 3ML VIAL ONE ×2 (10:04→18:28)
[2020-06-14] MEDS ORDERED: SODIUM POLYSTYRENE 15 GM/60 ML ORAL LIQD ONE (10:06)
[2020-06-14] MEDS ORDERED: levETIRAcetam 1000 MG/NS 0.75% 1,000 MG/100 ML BAG IV ONE (10:06)
[2020-06-14] MEDS: levETIRAcetam 1,000 MG in DEXTROSE 5% IN WATER 100 ML IV SCH ×2 (10:17→22:37)
[2020-06-14] MEDS: FAMOTIDINE 20 MG/2 ML INJ IV SCH (10:17)
--- NOTE | 2020-06-14 10:41 | Consultation ---
History of Present Illness Consult date: 06/14/20 Requesting physician: ZURDO DE LA ROSA Consult reason: cardiac arrest, elevated troponin History of present illness: The patient is 74-year-old male with unknown past medical history. Pt is intubated and unresponsive on evaluation and thus HPI is obtained per the chart. Patient brought to the emergency room via EMS [place] in cardiac arrest. EMS stated that patient went to the [facility] and collapsed all o f a sudden. EMS stated that patient was in asystole, although they but they reported that the pt was shocked twice and given amiodarone in the field. It is unclear if the patient experienced VT or VF. ROSC was obtained after second shock. Upon arrival to the ER patient experienced 2 additional cardiac arrests, reported rhythm PEA, intubated. On evaluation, pt remains intubated and nonresponsive. He is requiring vasopressor support. ECG with sinus tachycardia and RBBB. Labwork is significant for serum K+ 7.5, BUN/Cr 40/3.4, leukocytosis, elevated LFTs, elevated Christy. CXR with left-sided infiltrate. Head CT with NAF. Past History Past Medical History: other (Not available) Past Surgical History: Other (Not availabke) Social history: lives with family, full code Family history: other (Not available) Medications and Allergies Allergies Allergy/AdvReac Type Severity Reaction Status Date / Time Unable to Assess Allergy Unverified 06/13/20 17:34 Active Meds: Active Medications Acetaminophen (Tylenol) 650 mg PO Q4H PRN PRN Reason: Pain MILD(1-3)/Fever >100.5/OMER Albuterol (Proventil) 2.5 mg IH Q3HRT PRN PRN Reason: Wheezing Albuterol/Ipratropium (Duoneb *Not For Prn Use*) 1 ampul IH QIDRT [facility] Last Admin: 06/14/20 09:00 Dose: 1 ampul Documented by: Lipase/Protease/Amylase (Daniel Price 10,500 Unit) 1 each FEEDTUBE PRN PRN PRN Reason: For Clogged Feeding Tube Famotidine (Pepcid) 20 mg IV DAILY [facility] Hydrophilic Ointment (Vaseline Lip Therapy) 1 applic TP Q2HR PRN PRN Reason: Dry Lips Propofol (Propofol) 500 mg in 50 mls @ 2.379 mls/hr IV TITR DARREN; Protocol Last Admin: 06/14/20 04:49 Dose: 5 mcg/kg/min, 2.379 mls/hr Documented by: Norepinephrine (Levophed Drip 4 Mg/Ns 250 Ml) 4 mg in 250 mls @ 7.5 mls/hr IV TITR DARREN; Protocol Last Admin: 06/14/20 07:11 Dose: 30 mcg/min, 112.5 mls/hr Documented by: Amiodarone HCl 900 mg/ (Dextrose) 500 mls @ 33.333 mls/hr IV DIRECT DARREN; Protocol Levetiracetam 1,000 mg/ (Dextrose) 110 mls @ 400 mls/hr IV Q12HR DARREN Last Admin: 06/13/20 22:33 Dose: 400 mls/hr Documented by: Sodium Chloride (Nacl 0.9% 1000 Ml) 1,000 mls @ 100 mls/hr IV DIRECT DARREN Heparin Sodium/Sodium Chloride (Heparin/ 0.45% Nacl-25,000 Unit/500 Ml) 25,000 unit in 500 mls @ 20 mls/hr IV TITRATE DARREN; Protocol Last Admin: 06/14/20 02:41 Dose: 1,000 units/hr, 20 mls/hr Documented by: Dopamine HCl/Dextrose (Intropin Drip 800 Mg/D5w 250 Ml) 800 mg in 250 mls @ 2.977 mls/hr IV TITR DARREN; Protocol Last Admin: 06/14/20 07:00 Dose: 2 mcg/kg/min, 2.977 mls/hr Documented by: Vasopressin 20 unit/ Sodium (Chloride) 101 mls @ 9.09 mls/hr IV TITR DARREN; Protocol Levofloxacin/Dextrose (Levaquin 500mg/100ml) 500 mg in 100 mls @ 100 mls/hr IV Q48H DARREN; Protocol Lorazepam (Ativan) 1 mg IV Q1H PRN PRN Reason: Agitation Last Admin: 06/13/20 20:59 Dose: 1 mg Documented by: Metoclopramide HCl (Reglan) 10 mg IV Q6H PRN PRN Reason: Nausea And Vomiting Morphine Sulfate (Morphine) 2 mg IV Q4H PRN PRN Reason: Pain, Moderate (4-6) Multi-Ingred Cream/Lotion/Oil/Oint (Artificial Tears Ophth Oint) 1 applic OU Q4HR PRN PRN Reason: Dry Eye(s) Ondansetron HCl (Zofran) 4 mg IV Q8H PRN PRN Reason: Nausea And Vomiting Simple Syrup (Simple Syrup) 15 ml FEEDTUBE PRN PRN PRN Reason: Hypoglycemia Simple Syrup (Simple Syrup) 30 ml FEEDTUBE PRN PRN PRN Reason: Hypoglycemia Sodium Bicarbonate (Sodium Bicarbonate) 325 mg FEEDTUBE PRN PRN PRN Reason: For Clogged Feeding Tube Sodium Chloride (Sodium Chloride Flush Syringe 10 Ml) 10 ml IV BID DARREN Sodium Chloride (Sodium Chloride Flush Syringe 10 Ml) 10 ml IV PRN PRN PRN Reason: LINE FLUSH Review of Systems ROS unobtainable: due to endotracheal tube, due to mental status Physical Examination Vital Signs Pulse BP Pulse Ox 86 153/63 91 06/13/20 14:40 06/13/20 14:40 06/13/20 14:40 General appearance: other (intubated, unresponsive) Cardiac: Positive: Regular Rhythm, S1/S2 Lungs: Positive: Decreased Breath Sounds, Oxygen, Ventilated Respirations Neuro: Positive: Other (intubated, unresponsive) Results 06/14/20 07:22 06/14/20 07:22 Cardiac Enzymes 06/13/20 06/14/20 06/14/20 Range/Units 14:20 07:22 07:22 AST 53 H 575 H (5-40) units/L CK-MB (CK-2) 12.4 H (0.0-4.0) ng/mL Coagulation 06/13/20 06/14/20 Range/Units 14:20 00:14 PT 16.8 H 17.1 H (12.2-14.9) Sec. INR 1.36 H 1.40 H (0.87-1.13) APTT 48.3 H 32.1 (24.2-36.6) Sec. Lipids 06/13/20 Range/Units 16:52 Triglycerides 74 (2-149) mg/dL Cholesterol 88 (50-199) mg/dL HDL Cholesterol 40 (40-59) mg/dL Cholesterol/HDL Ratio 2.20 % CBC 06/13/20 06/14/20 06/14/20 Range/Units 14:20 00:14 07:22 WBC 14.1 H 22.8 H (4.5-11.0) K/mm3 RBC 3.98 4.17 (3.65-5.03) M/mm3 Hgb 12.8 13.1 13.1 (11.8-15.2) gm/dl Hct 40.2 40.3 41.6 (35.5-45.6) % Plt Count 207 233 244 (140-440) K/mm3 [place] # (Auto) 0.8 (0.0-0.8) K/mm3 Eos # (Auto) 0.3 (0.0-0.4) K/mm3 Baso # (Auto) 0.1 (0.0-0.1) K/mm3 Comprehensive Metabolic Panel 06/13/20 12 Range/Units 14:20 07:22 Sodium 140 143 (137-145) mmol/L Potassium 4.0 7.5 H* D (3.6-5.0) mmol/L Chloride 102.2 106.9 (98-107) mmol/L Carbon Dioxide 19 L 16 L (22-30) mmol/L BUN 18 40 H (9-20) mg/dL Creatinine 1.5 H 3.4 H D (0.8-1.3) mg/dL Glucose 246 H 73 L (75-100) mg/dL Calcium 8.4 7.9 L (8.4-10.2) mg/dL Direct Bilirubin < 0.2 (0-0.2) mg/dL Indirect Bilirubin 0.1 mg/dL AST 53 H 575 H (5-40) units/L ALT 35 248 H (7-56) units/L Alkaline Phosphatase 75 86 (35-129) units/L Total Protein 5.7 L 6.4 (6.3-8.2) g/dL Albumin 2.7 L 3.2 L (3.9-5) g/dL - Imaging and Cardiology EKG: report reviewed, image reviewed EKG interpretations - Telemetry EKG Rhythm: Sinus Tachycardia - EKG Sinus rhythms and dysrhythmias: sinus tachycardia AV and intraventricular conduction: right bundle branch block Assessment and Plan Pt on maximal dosage of levophed and dopamine has been initiated. Initiate vaso and recommend usage of vaso over dopamine for additional BP support in setting of sinus tachycardia. D/c amiodarone in setting of liver shock and unclear rhythm in the field per EMS. Agree with heparin gtt in setting of CE elevation. Cont to trend Christy and f/u ECG in AM. Initiate ASA if PO access is obtained. No BB in setting of hypotension. No statin in setting of elevated LFTs. Obtain echo. Management of hyperkalemia per primary team. Nephrology has also been consulted in setting of ARF. Recommend COVID-19 testing per primary team in setting of infiltrate on CXR and leukocytosis. Pt is unresponsive, not sedated, anoxic brain injury suspected. Neurology has been consulted. Overall poor prognosis. Will follow. The patient has been seen in conjunction with Dr. Stanton who agrees with the assessment and plan of care. - Patient Problems (1) Cardiopulmonary arrest Current Visit: Yes Status: Acute (2) Altered mental status Current Visit: Yes Status: Acute (3) Pneumonia Current Visit: Yes Status: Suspected (4) NSTEMI (non-ST elevated myocardial infarction) Current Visit: Yes Status: Acute (5) RBBB Current Visit: Yes Status: Acute (6) Sinus tachycardia Current Visit: Yes Status: Acute (7) Hypotension Current Visit: Yes Status: Acute (8) Acute renal failure Current Visit: Yes Status: Acute (9) Hyperkalemia Current Visit: Yes Status: Acute (10) Shock liver Current Visit: Yes Status: Acute
[2020-06-14] MEDS ORDERED: VASOPRESSIN 20 UNIT in SODIUM CHLORIDE 0.9% 100 ML IV SCH (11:00)
[2020-06-14] MEDS ORDERED: INSULIN REGULAR, HUMAN 100 UNIT/ML 3ML VIAL IV SCH (11:00)
[2020-06-14 11:24] LABS: Basophils % (Manual) 0 % (0.0-1.8); Eosinophils % (Manual) 0 % (0.0-4.3); Total Cells Counted 100
[2020-06-14 11:25] LABS: Anisocytosis RARE; Platelet Estimate Consistent w Auto
[2020-06-14 12:43] LABS: Creatine Kinase MB 12.8 ng/mL (0.0-4.0)
--- NOTE | 2020-06-14 12:56 | Consultation ---
History of Present Illness Consult date: 06/14/20 Requesting physician: ZURDO DE LA ROSA Reason for consult: other (Cardiac Arrest with ROSC) History of present illness: PULMONARY/CCM CONSULT NOTE (Full dictation # [id number]) Please see dictated notes for full details Past History Past Medical History: other (Not available) Past Surgical History: Other (Not availabke) Social history: lives with family, full code Family history: other (Not available) Medications and Allergies Allergies Allergy/AdvReac Type Severity Reaction Status Date / Time Unable to Assess Allergy Unverified 06/13/20 17:34 Active Meds: Active Medications Acetaminophen (Tylenol) 650 mg PO Q4H PRN PRN Reason: Pain MILD(1-3)/Fever >100.5/OMER Albuterol (Proventil) 2.5 mg IH Q3HRT PRN PRN Reason: Wheezing Albuterol/Ipratropium (Duoneb *Not For Prn Use*) 1 ampul IH QIDRT [facility] Last Admin: 06/14/20 09:00 Dose: 1 ampul Documented by: Lipase/Protease/Amylase (Pancreaze Dr 10,500 Unit) 1 each FEEDTUBE PRN PRN PRN Reason: For Clogged Feeding Tube Famotidine (Pepcid) 20 mg IV DAILY [facility] Last Admin: 06/14/20 10:17 Dose: 20 mg Documented by: Hydrophilic Ointment (Vaseline Lip Therapy) 1 applic TP Q2HR PRN PRN Reason: Dry Lips Propofol (Propofol) 500 mg in 50 mls @ 2.379 mls/hr IV TITR DARREN; Protocol Last Admin: 06/14/20 04:49 Dose: 5 mcg/kg/min, 2.379 mls/hr Documented by: Norepinephrine (Levophed Drip 4 Mg/Ns 250 Ml) 4 mg in 250 mls @ 7.5 mls/hr IV TITR DARREN; Protocol Last Admin: 06/14/20 07:11 Dose: 30 mcg/min, 112.5 mls/hr Documented by: Levetiracetam 1,000 mg/ (Dextrose) 110 mls @ 400 mls/hr IV Q12HR [facility]ARREN Last Admin: 06/14/20 10:17 Dose: 400 mls/hr Documented by: Sodium Chloride (Nacl 0.9% 1000 Ml) 1,000 mls @ 100 mls/hr IV DIRECT DARREN Heparin Sodium/Sodium Chloride (Heparin/ 0.45% Nacl-25,000 Unit/500 Ml) 25,000 unit in 500 mls @ 20 mls/hr IV TITRATE DARREN; Protocol Last Admin: 06/14/20 02:41 Dose: 1,000 units/hr, 20 mls/hr Documented by: Dopamine HCl/Dextrose (Intropin Drip 800 Mg/D5w 250 Ml) 800 mg in 250 mls @ 2.977 mls/hr IV TITR DARREN; Protocol Last Admin: 06/14/20 07:00 Dose: 2 mcg/kg/min, 2.977 mls/hr Documented by: Vasopressin 20 unit/ Sodium (Chloride) 101 mls @ 9.09 mls/hr IV TITR DARREN; Protocol Levofloxacin/Dextrose (Levaquin 500mg/100ml) 500 mg in 100 mls @ 100 mls/hr IV Q48H DARREN; Protocol Last Admin: 06/14/20 10:51 Dose: 100 mls/hr Documented by: Insulin Human Regular (Humulin R) 10 unit IV ONCE DARREN Stop: 06/14/20 13:00 Last Admin: 06/14/20 10:17 Dose: 10 unit Documented by: Lorazepam (Ativan) 1 mg IV Q1H PRN PRN Reason: Agitation Last Admin: 06/13/20 20:59 Dose: 1 mg Documented by: Metoclopramide HCl (Reglan) 10 mg IV Q6H PRN PRN Reason: Nausea And Vomiting Morphine Sulfate (Morphine) 2 mg IV Q4H PRN PRN Reason: Pain, Moderate (4-6) Multi-Ingred Cream/Lotion/Oil/Oint (Artificial Tears Ophth Oint) 1 applic OU Q4HR PRN PRN Reason: Dry Eye(s) Ondansetron HCl (Zofran) 4 mg IV Q8H PRN PRN Reason: Nausea And Vomiting Simple Syrup (Simple Syrup) 15 ml FEEDTUBE PRN PRN PRN Reason: Hypoglycemia Simple Syrup (Simple Syrup) 30 ml FEEDTUBE PRN PRN PRN Reason: Hypoglycemia Sodium Bicarbonate (Sodium Bicarbonate) 325 mg FEEDTUBE PRN PRN PRN Reason: For Clogged Feeding Tube Sodium Chloride (Sodium Chloride Flush Syringe 10 Ml) 10 ml IV BID DARREN Last Admin: 06/14/20 10:17 Dose: 10 ml Documented by: Sodium Chloride (Sodium Chloride Flush Syringe 10 Ml) 10 ml IV PRN PRN PRN Reason: LINE FLUSH Physical Examination Vital signs: Vital Signs Pulse BP Pulse Ox 86 153/63 91 06/13/20 14:40 06/13/20 14:40 06/13/20 14:40 Results - Laboratory Findings CBC and BMP: 06/14/20 07:22 06/14/20 07:22 ABG ABG pH 7.269 pH Units (7.350-7.450) L 06/14/20 04:00 ABG pCO2 39.9 mm Hg 06/14/20 04:00 ABG pO2 242.9 mm Hg (80.0-90.0) H 06/14/20 04:00 ABG O2 Saturation 99.3 % (95.0-99.0) H 06/14/20 04:00 PT/INR, D-dimer PT 17.1 Sec. (12.2-14.9) H 06/14/20 00:14 INR 1.40 (0.87-1.13) H 06/14/20 00:14 Abnormal lab findings: Abnormal Labs 06/13/20 06/13/20 06/13/20 14:20 14:20 14:20 WBC 14.1 H MCV 101 H MCHC RDW 19.1 H Seg Neuts % (Manual) Lymphocytes % (Manual) Seg Neutrophils # 8.3 H Seg Neutrophils # Man 9.0 H Monocytes # (Manual) PT 16.8 H INR 1.36 H APTT 48.3 H ABG pH ABG pO2 ABG HCO3 ABG O2 Saturation ABG Base Excess ABG Hemoglobin Oxyhemoglobin Potassium Carbon Dioxide 19 L BUN Creatinine 1.5 H Glucose 246 H Hemoglobin A1c Calcium AST 53 H ALT Total Creatine Kinase CK-MB (CK-2) Troponin T Total Protein 5.7 L Albumin 2.7 L LDL Cholesterol Direct 06/13/20 06/13/20 06/13/20 16:15 16:52 20:57 WBC MCV MCHC RDW Seg Neuts % (Manual) Lymphocytes % (Manual) Seg Neutrophils # Seg Neutrophils # Man Monocytes # (Manual) PT INR APTT ABG pH 7.222 L ABG pO2 92.0 H ABG HCO3 16.2 L ABG O2 Saturation ABG Base Excess -10.9 L ABG Hemoglobin 13.0 L Oxyhemoglobin 93.7 L Potassium Carbon Dioxide BUN Creatinine Glucose Hemoglobin A1c Calcium AST ALT Total Creatine Kinase CK-MB (CK-2) Troponin T 0.062 H D 0.176 H* D Total Protein Albumin LDL Cholesterol Direct 41 L 06/14/20 06/14/20 06/14/20 00:14 00:14 04:00 WBC MCV MCHC RDW Seg Neuts % (Manual) Lymphocytes % (Manual) Seg Neutrophils # Seg Neutrophils # Man Monocytes # (Manual) PT 17.1 H INR 1.40 H APTT ABG pH 7.269 L ABG pO2 242.9 H ABG HCO3 17.9 L ABG O2 Saturation 99.3 H ABG Base Excess -8.5 L ABG Hemoglobin 13.1 L Oxyhemoglobin Potassium Carbon Dioxide BUN Creatinine Glucose Hemoglobin A1c 6.6 H Calcium AST ALT Total Creatine Kinase CK-MB (CK-2) Troponin T Total Protein Albumin LDL Cholesterol Direct 06/14/20 06/14/20 06/14/20 07:22 07:22 07:22 WBC 22.8 H MCV 100 H MCHC 31 L RDW 19.9 H Seg Neuts % (Manual) 88.0 H Lymphocytes % (Manual) 7.0 L Seg Neutrophils # Seg Neutrophils # Man 20.1 H Monocytes # (Manual) 1.1 H PT INR APTT ABG pH ABG pO2 ABG HCO3 ABG O2 Saturation ABG Base Excess ABG Hemoglobin Oxyhemoglobin Potassium 7.5 H* D Carbon Dioxide 16 L BUN 40 H Creatinine 3.4 H D Glucose 73 L Hemoglobin A1c Calcium 7.9 L AST 575 H ALT 248 H Total Creatine Kinase 1395 H CK-MB (CK-2) 12.4 H Troponin T 0.318 H* D Total Protein Albumin 3.2 L LDL Cholesterol Direct 06/14/20 12:07 WBC MCV MCHC RDW Seg Neuts % (Manual) Lymphocytes % (Manual) Seg Neutrophils # Seg Neutrophils # Man Monocytes # (Manual) PT INR APTT ABG pH ABG pO2 ABG HCO3 ABG O2 Saturation ABG Base Excess ABG Hemoglobin Oxyhemoglobin Potassium Carbon Dioxide BUN Creatinine Glucose Hemoglobin A1c Calcium AST ALT Total Creatine Kinase 1642 H CK-MB (CK-2) 12.8 H Troponin T 0.365 H* Total Protein Albumin LDL Cholesterol Direct
[2020-06-14] MEDS ORDERED: SODIUM BICARB 8.4% 50 MEQ/50 ML SYRINGE IV ONE (13:41)
[2020-06-14] MEDS: SODIUM BICARBONATE 150 MEQ in DEXTROSE 5% IN WATER 1,000 ML IV SCH (14:46)
--- NOTE | 2020-06-14 16:13 | Progress Note ---
History Interval history: Acute hypoxic Respiratory failure S/p cardiac arrest intubated Vent support Webbing Supervisor consulted Cardiopulmonary arrest Patient revived and on Pressors Intubated Sedated Anoxic encephalopathy EEG pending Given sudden collapse and revival by EMS Neuro consulted NSTEMI (non-ST elevated myocardial infarction) Patient on Heparin drip Troponins elevated Cauise of Cardiac arrest maybe vfib/severe CAD Cardiology consulted 06/14/20. Pt on maximal dosage of levophed, vasopressin and dopamine. Cardiology D/cd amiodarone in setting of liver shock and unclear rhythm in the field per EMS. Cont. heparin gtt in setting of CE elevation. Cont to trend Christy and f/u ECG in AM. Initiate ASA if PO access is obtained. No BB in setting of hypotension. No statin in setting of elevated LFTs. F/U echo Nephrology has been consulted in setting of ARF an d hyperkalemia. Insulin/D50/calcium gluconate and kayexalate given. COVID-19 testing per primary team in setting of infiltrate on CXR and leukocytosis. Pt is unresponsive, not sedated, anoxic brain injury suspected. Neurology has been consulted. Overall poor prognosis. The high probability of a clinically significant, sudden or life threatening deterioration of the [cardiac, renal and respoiratory] system(s) required my full and direct attention, intervention and personal management. The aggregate critical care time was [32] minutes. This time is in addition to time spent performing reported procedures but includes the following: [x] Data Review and interpretation [x] Patient assessment and monitoring of vital signs [x] Documentation [x] Medication orders and management Hospitalist Physical - Constitutional Vitals: Temp Pulse Resp BP Pulse Ox 99.8 F H 92 H 19 84/40 95 06/14/20 14:11 06/14/20 13:25 06/14/20 13:25 06/14/20 13:00 06/14/20 13:00 General appearance: Present: other (intubated, unresponsive) HEART Score - HEART Score EKG: Non-specific Age: > 65 Troponin: Troponin T 0.365 ng/mL (0.00-0.029) H* 06/14/20 12:07 Troponin: 1-3x normal limit Results - Labs CBC & Chem 7: 06/14/20 07:22 06/14/20 07:22 Labs: Laboratory Last Values WBC 22.8 K/mm3 (4.5-11.0) H 06/14/20 07:22 RBC 4.17 M/mm3 (3.65-5.03) 06/14/20 07:22 Hgb 13.1 gm/dl (11.8-15.2) 06/14/20 07:22 Hct 41.6 % (35.5-45.6) 06/14/20 07:22 MCV 100 fl (84-94) H 06/14/20 07:22 MCH 31 pg (28-32) 06/14/20 07: MCHC 31 % (32-34) L 06/14/20 07:22 RDW 19.9 % (13.2-15.2) H 06/14/20 07:22 Plt Count 244 K/mm3 (140-440) 06/14/20 07:22 [place] % (Auto) 6.1 % (0.0-7.3) 06/13/20 14:20 Eos % (Auto) 2.0 % (0.0-4.3) 06/13/20 14:20 [place] # (Auto) 0.8 K/mm3 (0.0-0.8) 06/13/20 14:20 Eos # (Auto) 0.3 K/mm3 (0.0-0.4) 06/13/20 14:20 Baso # (Auto) 0.1 K/mm3 (0.0-0.1) 06/13/20 14:20 Add Manual Diff Complete 06/14/20 07:22 Total Counted 100 06/14/20 07:22 Seg Neutrophils % 59.0 % (40.0-70.0) 06/13/20 14:20 Seg Neuts % (Manual) 88.0 % (40.0-70.0) H 06/14/20 07:22 Band Neutrophils % 0 % 06/14/20 07:22 Lymphocytes % (Manual) 7.0 % (13.4-35.0) L 06/14/20 07:22 Reactive Lymphs % (Man) 0 % 06/14/20 07:22 Monocytes % (Manual) 5.0 % (0.0-7.3) 06/14/20 07:22 Eosinophils % (Manual) 0 % (0.0-4.3) 06/14/20 07:22 Basophils % (Manual) 0 % (0.0-1.8) 06/14/20 07:22 Metamyelocytes % 0 % 06/14/20 07:22 Myelocytes % 0 % 06/14/20 07:22 Promyelocytes % 0 % 06/14/20 07:22 Blast Cells % 0 % 06/14/20 07:22 Nucleated RBC % Not Reportable 06/14/20 07:22 Seg Neutrophils # 8.3 K/mm3 (1.8-7.7) H 06/13/20 14:20 Seg Neutrophils # Man 20.1 K/mm3 (1.8-7.7) H 06/14/20 07:22 Band Neutrophils # 0.0 K/mm3 06/14/20 07:22 Lymphocytes # (Manual) 1.6 K/mm3 (1.2-5.4) 06/14/20 07:22 Abs React Lymphs (Man) 0.0 K/mm3 06/14/20 07:22 Monocytes # (Manual) 1.1 K/mm3 (0.0-0.8) H 06/14/20 07:22 Eosinophils # (Manual) 0.0 K/mm3 (0.0-0.4) 06/14/20 07:22 Basophils # (Manual) 0.0 K/mm3 (0.0-0.1) 06/14/20 07:22 Metamyelocytes # 0.0 K/mm3 06/14/20 07:22 Myelocytes # 0.0 K/mm3 06/14/20 07:22 Promyelocytes # 0.0 K/mm3 06/14/20 07:22 Blast Cells # 0.0 K/mm3 06/14/20 07:22 WBC Morphology Not Reportable 06/14/20 07:22 Hypersegmented Neuts Not Reportable 06/14/20 07:22 Hyposegmented Neuts Not Reportable 06/14/20 07:22 Hypogranular Neuts Not Reportable 06/14/20 07:22 Smudge Cells Not Reportable 06/14/20 07:22 Toxic Granulation Not Reportable 06/14/20 07:22 Toxic Vacuolation Not Reportable 06/14/20 07:22 Dohle Bodies Not Reportable 06/14/20 07:22 Pelger-Huet Anomaly Not Reportable 06/14/20 07:22 Casey Rods Not Reportable 06/14/20 07:22 Platelet Estimate Consistent w auto 06/14/20 07:22 Clumped Platelets Not Reportable 06/14/20 07:22 Plt Clumps, EDTA Not Reportable 06/14/20 07:22 Large Platelets Not Reportable 06/14/20 07:22 Giant Platelets Not Reportable 06/14/20 07:22 Platelet Satelliting Not Reportable 06/14/20 07:22 Plt Morphology Comment Not Reportable 06/14/20 07:22 RBC Morphology Not Reportable 06/14/20 07:22 Dimorphic RBCs Not Reportable 06/14/20 07:22 Polychromasia Not Reportable 06/14/20 07:22 Hypochromasia Not Reportable 06/14/20 07:22 Poikilocytosis Not Reportable 06/14/20 07:22 Anisocytosis Rare 06/14/20 07:22 Microcytosis Rare 06/14/20 07:22 Macrocytosis Not Reportable 06/14/20 07:22 Spherocytes Not Reportable 06/14/20 07:22 Pappenheimer Bodies Not Reportable 06/14/20 07:22 Sickle Cells Not Reportable 06/14/20 07:22 Target Cells Not Reportable 06/14/20 07:22 Tear Drop Cells Not Reportable 06/14/20 07:22 Ovalocytes Not Reportable 06/14/20 07:22 Helmet Cells Not Reportable 06/14/20 07:22 Chandra-Ojus Bodies Not Reportable 06/14/20 07:22 [place] Rings Not Reportable 06/14/20 07:22 Juanita Cells Not Reportable 06/14/20 07:22 Bite Cells Not Reportable 06/14/20 07:22 Crenated Cell Not Reportable 06/14/20 07:22 Elliptocytes Not Reportable 06/14/20 07:22 Acanthocytes (Spur) Not Reportable 06/14/20 07:22 Rouleaux Not Reportable 06/14/20 07:22 Hemoglobin C Crystals Not Reportable 06/14/20 07:22 Schistocytes Not Reportable 06/14/20 07:22 Malaria parasites Not Reportable 06/14/20 07:22 Edgardo Bodies Not Reportable 06/14/20 07:22 Hem Pathologist Commnt No 06/14/20 07:22 PT 17.1 Sec. (12.2-14.9) H 06/14/20 00:14 INR 1.40 (0.87-1.13) H 06/14/20 00:14 APTT 32.1 Sec. (24.2-36.6) 06/14/20 00:14 Heparin Anti-Xa Level 0.47 U.I./ml (0.3-0.7) 06/14/20 09:41 ABG pH 7.269 pH Units (7.350-7.450) L 06/14/20 04:00 ABG pCO2 39.9 mm Hg 06/14/20 04:00 ABG pO2 242.9 mm Hg (80.0-90.0) H 06/14/20 04:00 ABG HCO3 17.9 mmol/L (20.0-26.0) L 06/14/20 04:00 ABG O2 Saturation 99.3 % (95.0-99.0) H 06/14/20 04:00 ABG O2 Content 18.6 (0.0-44) 06/14/20 04:00 ABG Base Excess -8.5 mmol/L (-2.0-3.0) L 06/14/20 04:00 ABG Hemoglobin 13.1 gm/dl (14.0-18.0) L 06/14/20 04:00 ABG Carboxyhemoglobin 1.1 % (0.0-5.0) 06/14/20 04:00 ABG Methemoglobin 0.6 % (0.0-1.5) 06/14/20 04:00 Oxyhemoglobin 97.6 % (95.0-99.0) 06/14/20 04:00 FiO2 100 % 06/14/20 04:00 Sodium 143 mmol/L (137-145) 06/14/20 07:22 Potassium 7.5 mmol/L (3.6-5.0) H* D 06/14/20 07:22 Chloride 106.9 mmol/L (98-107) 06/14/20 07:22 Carbon Dioxide 16 mmol/L (22-30) L 06/14/20 07:22 Anion Gap 28 mmol/L 06/14/20 07:22 BUN 40 mg/dL (9-20) H 06/14/20 07:22 Creatinine 3.4 mg/dL (0.8-1.3) H D 06/14/20 07:22 Estimated GFR 18 ml/min 06/14/20 07:22 BUN/Creatinine Ratio 12 % 06/14/20 07:22 Glucose 73 mg/dL (75-100) L 06/14/20 07:22 Hemoglobin A1c 6.6 % (4-6) H 06/14/20 00:14 Calcium 7.9 mg/dL (8.4-10.2) L 06/14/20 07:22 Total Bilirubin 0.90 mg/dL (0.1-1.2) 06/14/20 07:22 Direct Bilirubin < 0.2 mg/dL (0-0.2) 06/13/20 14:20 Indirect Bilirubin 0.1 mg/dL 06/13/20 14:20 AST 575 units/L (5-40) H 06/14/20 07:22 ALT 248 units/L (7-56) H 06/14/20 07:22 Alkaline Phosphatase 86 units/L (35-129) 06/14/20 07:22 Total Creatine Kinase 1642 units/L (55-170) H 06/14/20 12:07 CK-MB (CK-2) 12.8 ng/mL (0.0-4.0) H 06/14/20 12:07 CK-MB (CK-2) Rel Index 0.7 (0-4) 06/14/20 12:07 Troponin T 0.365 ng/mL (0.00-0.029) H* 06/14/20 12:07 Total Protein 6.4 g/dL (6.3-8.2) 06/14/20 07:22 Albumin 3.2 g/dL (3.9-5) L 06/14/20 07:22 Albumin/Globulin Ratio 1.0 % 06/14/20 07:22 Triglycerides 74 mg/dL (2-149) 06/13/20 16:52 Cholesterol 88 mg/dL (50-199) 06/13/20 16:52 LDL Cholesterol Direct 41 mg/dL (50-130) L 06/13/20 16:52 HDL Cholesterol 40 mg/dL (40-59) 06/13/20 16:52 Cholesterol/HDL Ratio 2.20 % 06/13/20 16:52 [place]/IV: IV Catheter Type [Right INT / Saline Lock Antecubital] Active Medications - Current Medications Current Medications: Generic Name Dose Route Start Last Admin Trade Name Freq PRN Reason Stop Dose Admin Acetaminophen 650 mg 06/13/20 22:48 Tylenol PO Q4H PRN Pain MILD(1-3)/Fever >100.5/OMER Albuterol 2.5 mg 06/13/20 23:07 Proventil IH Q3HRT PRN Wheezing Albuterol/Ipratropium 1 ampul 06/14/20 08:00 06/14/20 13:24 Duoneb *Not For Prn Use* IH 1 ampul QIDRT DARREN Administration Lipase/Protease/Amylase 1 each 06/13/20 22:56 Pancreaze 10,500 Unit FEEDTUBE PRN PRN For Clogged Feeding Tube Famotidine 20 mg 06/14/20 10:00 06/14/20 10:17 Pepcid IV 20 mg DAILY DARREN Administration Hydrophilic Ointment 1 applic 06/13/20 15:11 Vaseline Lip Therapy TP Q2HR PRN Dry Lips Propofol 500 mg in 50 mls @ 2.379 mls/hr 06/13/20 20:00 06/14/20 04:49 Propofol IV 5 mcg/kg/min TITR DARREN 2.379 mls/hr Administration Protocol 5 MCG/KG/MIN Norepinephrine 4 mg in 250 mls @ 7.5 mls/hr 06/13/20 16:00 06/14/20 07:11 Levophed Drip 4 Mg/Ns 250 Ml IV 30 mcg/min TITR DARREN 112.5 mls/hr Administration Protocol 2 MCG/MIN Levetiracetam 1,000 mg/ 110 mls @ 400 mls/hr 06/13/20 22:00 06/14/20 10:17 Dextrose IV 400 mls/hr Q12HR DARREN Administration Heparin Sodium/Sodium Chloride 25,000 unit in 500 mls @ 20 mls/hr 06/13/20 23:00 06/14/20 02:41 Heparin/ 0.45% Nacl-25,000 Unit/500 Ml IV 1,000 units/hr TITRATE DARREN 20 mls/hr Administration Protocol 1,000 UNITS/HR Vasopressin 20 unit/ Sodium 101 mls @ 9.09 mls/hr 06/14/20 11:00 06/14/20 09:55 Chloride IV 0.03 units/min TITR DARREN 9.09 mls/hr Administration Protocol 0.03 UNITS/MIN Levofloxacin/Dextrose 500 mg in 100 mls @ 100 mls/hr 06/14/20 11:00 06/14/20 10:51 Levaquin 500mg/100ml IV 100 mls/hr Q48H DARREN Administration Protocol Dopamine HCl/Dextrose 800 mg in 250 mls @ 2.977 mls/hr 06/14/20 14:00 14:46 Intropin Drip 800 Mg/D5w 250 Ml IV 0 mcg/kg/min TITR DARREN 0 mls/hr Titration Protocol 2 MCG/KG/MIN Sodium Bicarbonate 150 meq/ 1,150 mls @ 100 mls/hr 06/14/20 14:30 06/14/20 14:46 Dextrose IV 06/17/20 01:59 100 mls/hr DIRECT DARREN Administration Lorazepam 1 mg 06/13/20 19:51 06/13/20 20:59 Ativan IV 1 mg Q1H PRN Administration Agitation Metoclopramide HCl 10 mg 06/13/20 22:48 Reglan IV Q6H PRN Nausea And Vomiting Morphine Sulfate 2 mg 06/13/20 22:48 Morphine IV Q4H PRN Pain, Moderate (4-6) Multi-Ingred Cream/Lotion/Oil/Oint 1 applic 06/13/20 15:11 Artificial Tears Ophth Oint OU Q4HR PRN Dry Eye(s) Ondansetron HCl 4 mg 06/13/20 22:48 Zofran IV Q8H PRN Nausea And Vomiting Simple Syrup 15 ml 06/13/20 22:56 Simple Syrup FEEDTUBE PRN PRN Hypoglycemia Simple Syrup 30 ml 06/13/20 22:56 Simple Syrup FEEDTUBE PRN PRN Hypoglycemia Sodium Bicarbonate 325 mg 06/13/20 22:56 Sodium Bicarbonate FEEDTUBE PRN PRN For Clogged Feeding Tube Sodium Chloride 10 ml 06/14/20 10:00 06/14/20 10:17 Sodium Chloride Flush Syringe 10 Ml IV 10 ml BID DARREN Administration Sodium Chloride 10 ml 06/13/20 22:48 Sodium Chloride Flush Syringe 10 Ml IV PRN PRN LINE FLUSH Nutrition/Malnutrition Assess - Dietary Evaluation Nutrition/Malnutrition Findings: Nutrition Notes Start: 06/14/20 09:30 Freq: Status: Active Protocol: Document 06/14/20 13:29 EN (Rec: 06/14/20 13:38 EN [id number]) Co-Sign 06/14/20 13:29 LM Nutrition Notes Need for Assessment generated from: MD Order Initial or Follow up Assessment Current Diagnosis Respiratory Failure Other Pertinent Diagnosis Anoxic encephalopathy, NSTEMI, hypotension, seizure d/o Current Diet TF Labs/Tests K+ 7.5 BUN 40 Cr 3.4 Glu 73 Pertinent Medications Norepinephrine Propofol at 2.379ml/hr ( providing 63 kcal) Height 5 ft 8 in Weight 79.379 kg [place] Body Weight (kg) 70.00 BMI 26.6 Weight Status Overweight Subjective/Other Information MD consult for write/manage TF . Pt intubated yesterday. Burn Absent Trauma Absent GI Symptoms None Current % PO Negligible Minimum of two criteria No physical signs of malnutrition #1 Nutrition Diagnosis Inadequate oral intake Etiology mechanical ventilation As Evidenced by Signs and Symptoms pt unable to consume PO Is patient on ventilator? Yes Is Patient Ambulatory and/or Out of Bed No REE-([facility]-confined to bed) 1804.296 Calculation Used for Recommendations [facility] Additional Notes Protein: 1.2-2g/kg (95-158g) Fluid: 1ml/kcal Nutrition Intervention Change Diet Order: Start TF Nutrition Support: Nepro 1.8 at 40 ml/hr Flush 170ml q4h Kcal 1,728 Protein (gm) 78 Fluid (mL) 698 Goal #1 TF start/tolerance Goal #2 Meet 75% of energy and protein needs via TF Anticipated Discharge Needs: unable to determine at this time Follow-Up By: 06/16/20 Additional Comments TF start/tolerance and K+/ renal labs
[2020-06-14 16:21] LABS: Calcium 7.6 mg/dL (8.4-10.2)
--- NOTE | 2020-06-14 17:02 | Consultation ---
History of Present Illness Consult date: 06/14/20 Chief complaint: Coma History of present illness: History of present illness: Patient is 74-year-old male with unknown past medical history. Patient brought to the emergency room via EMS [place] in a full cardiac arrest. EMS stated that patient went to the cashier parking lot and collapse all of a sudden. EMS stated that initially patient is asystole but they informed that the patient has been shocked twice and get amiodarone 300 mg. Unclear if the patient went into V. fib or V. tach for arrest. Patient regained his circulation after the second shock. Upon arrival to the ER patient became pulseless again with monitoring showing PEA. ACLS protocol continued in the emergency room. Intubation conf irmed by me with good breath sound on both sides. Patient able to regain his pulse for a few minutes and lost again. ACLS continued and patient regained his pulse for the third time. Patient started on amiodarone. Right internal jugular central vein placed by ED physician Dr Slater and patient started on Levophed. For further information please refer to code sheet. I have reviewed the aboved history with the nurse and in addition nurse reports no improvement and now on COVID rule out Past History Past Medical History: other (Not available) Past Surgical History: Other (Not availabke) Social history: lives with family, full code Family history: other (Not available) Medications and Allergies Allergies Allergy/AdvReac Type Severity Reaction Status Date / Time Unable to Assess Allergy Unverified 06/13/20 17:34 Active Meds: Active Medications Acetaminophen (Tylenol) 650 mg PO Q4H PRN PRN Reason: Pain MILD(1-3)/Fever >100.5/OMER Albuterol (Proventil) 2.5 mg IH Q3HRT PRN PRN Reason: Wheezing Albuterol/Ipratropium (Duoneb *Not For Prn Use*) 1 ampul IH QIDRT [facility] Last Admin: 06/14/20 16:54 Dose: 1 ampul Documented by: Lipase/Protease/Amylase (Daniel Price 10,500 Unit) 1 each FEEDTUBE PRN PRN PRN Reason: For Clogged Feeding Tube Famotidine (Pepcid) 20 mg IV DAILY [facility] Last Admin: 06/14/20 10:17 Dose: 20 mg Documented by: Hydrophilic Ointment (Vaseline Lip Therapy) 1 applic TP Q2HR PRN PRN Reason: Dry Lips Propofol (Propofol) 500 mg in 50 mls @ 2.379 mls/hr IV TITR DARREN; Protocol Last Admin: 06/14/20 04:49 Dose: 5 mcg/kg/min, 2.379 mls/hr Documented by: Norepinephrine (Levophed Drip 4 Mg/Ns 250 Ml) 4 mg in 250 mls @ 7.5 mls/hr IV TITR DARREN; Protocol Last Admin: 06/14/20 07:11 Dose: 30 mcg/min, 112.5 mls/hr Documented by: Levetiracetam 1,000 mg/ (Dextrose) 110 mls @ 400 mls/hr IV Q12HR DARREN Last Admin: 06/14/20 10:17 Dose: 400 mls/hr Documented by: Heparin Sodium/Sodium Chloride (Heparin/ 0.45% Nacl-25,000 Unit/500 Ml) 25,000 unit in 500 mls @ 20 mls/hr IV TITRATE DARREN; Protocol Last Admin: 06/14/20 02:41 Dose: 1,000 units/hr, 20 mls/hr Documented by: Vasopressin 20 unit/ Sodium (Chloride) 101 mls @ 9.09 mls/hr IV TITR DARREN; Protocol Last Admin: 06/14/20 09:55 Dose: 0.03 units/min, 9.09 mls/hr Documented by: Levofloxacin/Dextrose (Levaquin 500mg/100ml) 500 mg in 100 mls @ 100 mls/hr IV Q48H DARREN; Protocol Last Admin: 06/14/20 10:51 Dose: 100 mls/hr Documented by: Dopamine HCl/Dextrose (Intropin Drip 800 Mg/D5w 250 Ml) 800 mg in 250 mls @ 2.977 mls/hr IV TITR DARREN; Protocol Last Titration: 06/14/20 16:59 Dose: 8 mcg/kg/min, 11.907 mls/hr Documented by: Sodium Bicarbonate 150 meq/ (Dextrose) 1,150 mls @ 100 mls/hr IV DIRECT DARREN Stop: 06/17/20 01:59 Last Admin: 06/14/20 14:46 Dose: 100 mls/hr Documented by: Lorazepam (Ativan) 1 mg IV Q1H PRN PRN Reason: Agitation Last Admin: 06/13/20 20:59 Dose: 1 mg Documented by: Metoclopramide HCl (Reglan) 10 mg IV Q6H PRN PRN Reason: Nausea And Vomiting Morphine Sulfate (Morphine) 2 mg IV Q4H PRN PRN Reason: Pain, Moderate (4-6) Multi-Ingred Cream/Lotion/Oil/Oint (Artificial Tears Ophth Oint) 1 applic OU Q4HR PRN PRN Reason: Dry Eye(s) Ondansetron HCl (Zofran) 4 mg IV Q8H PRN PRN Reason: Nausea And Vomiting Simple Syrup (Simple Syrup) 15 ml FEEDTUBE PRN PRN PRN Reason: Hypoglycemia Simple Syrup (Simple Syrup) 30 ml FEEDTUBE PRN PRN PRN Reason: Hypoglycemia Sodium Bicarbonate (Sodium Bicarbonate) 325 mg FEEDTUBE PRN PRN PRN Reason: For Clogged Feeding Tube Sodium Chloride (Sodium Chloride Flush Syringe 10 Ml) 10 ml IV BID DARREN Last Admin: 06/14/20 10:17 Dose: 10 ml Documented by: Sodium Chloride (Sodium Chloride Flush Syringe 10 Ml) 10 ml IV PRN PRN PRN Reason: LINE FLUSH Physical Examination - Vital Signs Vital Signs: Vital Signs Pulse BP Pulse Ox 86 153/63 91 06/13/20 14:40 06/13/20 14:40 06/13/20 14:40 - Physical Exam Narrative exam: Was not performed since the patient was placed on COVID rule out , reviewed notes and discussed with Nurse, patient continues to unresponsive. No Gag. Results - Laboratory Findings CBC and BMP: 06/14/20 07:22 06/14/20 15:50 Abnormal Lab Findings: Abnormal Labs 06/13/20 06/13/20 06/13/20 14:20 14:20 14:20 WBC 14.1 H MCV 101 H MCHC RDW 19.1 H Seg Neuts % (Manual) Lymphocytes % (Manual) Seg Neutrophils # 8.3 H Seg Neutrophils # Man 9.0 H Monocytes # (Manual) PT 16.8 H INR 1.36 H APTT 48.3 H D-Dimer ABG pH ABG pO2 ABG HCO3 ABG O2 Saturation ABG Base Excess ABG Hemoglobin Oxyhemoglobin Potassium Carbon Dioxide 19 L BUN Creatinine 1.5 H Glucose 246 H Hemoglobin A1c Lactic Acid Calcium AST 53 H ALT Lactate Dehydrogenase Total Creatine Kinase CK-MB (CK-2) Troponin T Total Protein 5.7 L Albumin 2.7 L LDL Cholesterol Direct 06/13/20 06/13/20 06/13/20 16:15 16:52 20:57 WBC MCV MCHC RDW Seg Neuts % (Manual) Lymphocytes % (Manual) Seg Neutrophils # Seg Neutrophils # Man Monocytes # (Manual) PT INR APTT D-Dimer ABG pH 7.222 L ABG pO2 92.0 H ABG HCO3 16.2 L ABG O2 Saturation ABG Base Excess -10.9 L ABG Hemoglobin 13.0 L Oxyhemoglobin 93.7 L Potassium Carbon Dioxide BUN Creatinine Glucose Hemoglobin A1c Lactic Acid Calcium AST ALT Lactate Dehydrogenase Total Creatine Kinase CK-MB (CK-2) Troponin T 0.062 H D 0.176 H* D Total Protein Albumin LDL Cholesterol Direct 41 L 06/14/20 06/14/20 06/14/20 00:14 00:14 04:00 WBC MCV MCHC RDW Seg Neuts % (Manual) Lymphocytes % (Manual) Seg Neutrophils # Seg Neutrophils # Man Monocytes # (Manual) PT 17.1 H INR 1.40 H APTT D-Dimer ABG pH 7.269 L ABG pO2 242.9 H ABG HCO3 17.9 L ABG O2 Saturation 99.3 H ABG Base Excess -8.5 L ABG Hemoglobin 13.1 L Oxyhemoglobin Potassium Carbon Dioxide BUN Creatinine Glucose Hemoglobin A1c 6.6 H Lactic Acid Calcium AST ALT Lactate Dehydrogenase Total Creatine Kinase CK-MB (CK-2) Troponin T Total Protein Albumin LDL Cholesterol Direct 06/14/20 06/14/20 06/14/20 07:22 07:22 07:22 WBC 22.8 H MCV 100 H MCHC 31 L RDW 19.9 H Seg Neuts % (Manual) 88.0 H Lymphocytes % (Manual) 7.0 L Seg Neutrophils # Seg Neutrophils # Man 20.1 H Monocytes # (Manual) 1.1 H PT INR APTT D-Dimer ABG pH ABG pO2 ABG HCO3 ABG O2 Saturation ABG Base Excess ABG Hemoglobin Oxyhemoglobin Potassium 7.5 H* D Carbon Dioxide 16 L BUN 40 H Creatinine 3.4 H D Glucose 73 L Hemoglobin A1c Lactic Acid Calcium 7.9 L AST 575 H ALT 248 H Lactate Dehydrogenase Total Creatine Kinase 1395 H CK-MB (CK-2) 12.4 H Troponin T 0.318 H* D Total Protein Albumin 3.2 L LDL Cholesterol Direct 06/14/20 06/14/20 06/14/20 12:07 15:50 15:50 WBC MCV MCHC RDW Seg Neuts % (Manual) Lymphocytes % (Manual) Seg Neutrophils # Seg Neutrophils # Man Monocytes # (Manual) PT INR APTT D-Dimer > 07228 H ABG pH ABG pO2 ABG HCO3 ABG O2 Saturation ABG Base Excess ABG Hemoglobin Oxyhemoglobin Potassium Carbon Dioxide BUN Creatinine Glucose Hemoglobin A1c Lactic Acid Calcium AST ALT Lactate Dehydrogenase 3383 H Total Creatine Kinase 1642 H CK-MB (CK-2) 12.8 H Troponin T 0.365 H* Total Protein Albumin LDL Cholesterol Direct 06/14/20 06/14/20 15:50 15:50 WBC MCV MCHC RDW Seg Neuts % (Manual) Lymphocytes % (Manual) Seg Neutrophils # Seg Neutrophils # Man Monocytes # (Manual) PT INR APTT D-Dimer ABG pH ABG pO2 ABG HCO3 ABG O2 Saturation ABG Base Excess ABG Hemoglobin Oxyhemoglobin Potassium 7.4 H* Carbon Dioxide 14 L BUN 48 H Creatinine 4.2 H Glucose 48 L Hemoglobin A1c Lactic Acid 7.60 H* Calcium 7.6 L AST ALT Lactate Dehydrogenase Total Creatine Kinase CK-MB (CK-2) Troponin T Total Protein Albumin LDL Cholesterol Direct Assessment and Plan - Patient Problems (1) Anoxic encephalopathy Current Visit: Yes Status: Acute Plan to address problem: 1. This is a very unfortunate issue, in the last 24 hours no clinical improvement. 2. Neurological Recovery is Guarded. 3. EEG for Prognostications and rule out Seizures . 4. Overall after review of chart and events prognosis is guarded and ? poor . Dr. Staples
--- NOTE | 2020-06-14 17:29 | Consultation ---
History of Present Illness - Reason for Consult Consult date: 06/14/20 acute renal failure, hyperkalemia - History of Present Illness This is a 74-year-old male with unknown past medical history who presents with cardiac arrest. Given circumstance, history obtained from chart review and from daughter on phone. Patient noted to have collapsed at gas station, initially asystole but noted to have multiple events with PEA as well. Initially, creatinine was <2 on arrival to ED but has since increased to >4 with persistent hyperkalemia >7 despite medical interventions. Spoke with daughter this PM. No known history of kidney disease but states he has had "high potassium before". Patient intubated on multiple pressors, on HCO3 gtt at time of consult. Past History Past Medical History: other (Not available) Past Surgical History: Other (Not availabke) Social history: lives with family, full code Family history: other (Not available) Medications and Allergies Allergies Allergy/AdvReac Type Severity Reaction Status Date / Time Unable to Assess Allergy Unverified 06/13/20 17:34 Active Meds: Active Medications Acetaminophen (Tylenol) 650 mg PO Q4H PRN PRN Reason: Pain MILD(1-3)/Fever >100.5/OMER Albuterol (Proventil) 2.5 mg IH Q3HRT PRN PRN Reason: Wheezing Albuterol/Ipratropium (Duoneb *Not For Prn Use*) 1 ampul IH QIDRT [facility] Last Admin: 06/14/20 16:54 Dose: 1 ampul Documented by: Lipase/Protease/Amylase (Pancregagan Dr 10,500 Unit) 1 each FEEDTUBE PRN PRN PRN Reason: For Clogged Feeding Tube Famotidine (Pepcid) 20 mg IV DAILY [facility] Last Admin: 06/14/20 10:17 Dose: 20 mg Documented by: Hydrophilic Ointment (Vaseline Lip Therapy) 1 applic TP Q2HR PRN PRN Reason: Dry Lips Propofol (Propofol) 500 mg in 50 mls @ 2.379 mls/hr IV TITR [facility]; Protocol Last Admin: 06/14/20 04:49 Dose: 5 mcg/kg/min, 2.379 mls/hr Documented by: Norepinephrine (Levophed Drip 4 Mg/Ns 250 Ml) 4 mg in 250 mls @ 7.5 mls/hr IV TITR [facility]; Protocol Last Admin: 06/14/20 07:11 Dose: 30 mcg/min, 112.5 mls/hr Documented by: Levetiracetam 1,000 mg/ (Dextrose) 110 mls @ 400 mls/hr IV Q12HR DARREN Last Admin: 06/14/20 10:17 Dose: 400 mls/hr Documented by: Heparin Sodium/Sodium Chloride (Heparin/ 0.45% Nacl-25,000 Unit/500 Ml) 25,000 unit in 500 mls @ 20 mls/hr IV TITRATE DARREN; Protocol Last Admin: 06/14/20 02:41 Dose: 1,000 units/hr, 20 mls/hr Documented by: Vasopressin 20 unit/ Sodium (Chloride) 101 mls @ 9.09 mls/hr IV TITR DARREN; Protocol Last Admin: 06/14/20 09:55 Dose: 0.03 units/min, 9.09 mls/hr Documented by: Levofloxacin/Dextrose (Levaquin 500mg/100ml) 500 mg in 100 mls @ 100 mls/hr IV Q48H DARREN; Protocol Last Admin: 06/14/20 10:51 Dose: 100 mls/hr Documented by: Dopamine HCl/Dextrose (Intropin Drip 800 Mg/D5w 250 Ml) 800 mg in 250 mls @ 2.977 mls/hr IV TITR [facility]ARREN; Protocol Last Titration: 06/14/20 17:13 Dose: 6 mcg/kg/min, 8.93 mls/hr Documented by: Sodium Bicarbonate 150 meq/ (Dextrose) 1,150 mls @ 100 mls/hr IV DIRECT DARREN Stop: 06/17/20 01:59 Last Admin: 06/14/20 14:46 Dose: 100 mls/hr Documented by: Lorazepam (Ativan) 1 mg IV Q1H PRN PRN Reason: Agitation Last Admin: 06/13/20 20:59 Dose: 1 mg Documented by: Metoclopramide HCl (Reglan) 10 mg IV Q6H PRN PRN Reason: Nausea And Vomiting Morphine Sulfate (Morphine) 2 mg IV Q4H PRN PRN Reason: Pain, Moderate (4-6) Multi-Ingred Cream/Lotion/Oil/Oint (Artificial Tears Ophth Oint) 1 applic OU Q4HR PRN PRN Reason: Dry Eye(s) Ondansetron HCl (Zofran) 4 mg IV Q8H PRN PRN Reason: Nausea And Vomiting Simple Syrup (Simple Syrup) 15 ml FEEDTUBE PRN PRN PRN Reason: Hypoglycemia Simple Syrup (Simple Syrup) 30 ml FEEDTUBE PRN PRN PRN Reason: Hypoglycemia Sodium Bicarbonate (Sodium Bicarbonate) 325 mg FEEDTUBE PRN PRN PRN Reason: For Clogged Feeding Tube Sodium Chloride (Sodium Chloride Flush Syringe 10 Ml) 10 ml IV BID DARREN Last Admin: 06/14/20 10:17 Dose: 10 ml Documented by: Sodium Chloride (Sodium Chloride Flush Syringe 10 Ml) 10 ml IV PRN PRN PRN Reason: LINE FLUSH Review of Systems ROS unobtainable: due to endotracheal tube Exam - Vital Signs Vital signs: Vital Signs Pulse BP Pulse Ox 86 153/63 91 06/13/20 14:40 06/13/20 14:40 06/13/20 14:40 - Physical Exam Narrative exam: General appearance: Present: severe distress (Patient intubated) - Neck Neck: Present: supple, normal ROM - Respiratory Respiratory effort: normal Respiratory: mechanical breath sounds - Cardiovascular Heart rate: tachycardic Rhythm: regular Heart Sounds: Present: S1 & S2. Absent: rub, click - Extremities Extremities: pulses symmetrical, No edema Peripheral Pulses: within normal limits - Abdominal General gastrointestinal: Present: soft, non-tender, non-distended, normal bowel sounds Male genitourinary: Present: normal - Integumentary Integumentary: Present: clear, warm, dry - Neurologic Neurologic: no response to verbal or tactile stimuli Results - Lab Results 06/14/20 07:22 06/14/20 15:50 Most recent lab results ABG pH 7.269 pH Units (7.350-7.450) L 06/14/20 04:00 ABG pCO2 39.9 mm Hg 06/14/20 04:00 ABG pO2 242.9 mm Hg (80.0-90.0) H 06/14/20 04:00 ABG HCO3 17.9 mmol/L (20.0-26.0) L 06/14/20 04:00 ABG O2 Saturation 99.3 % (95.0-99.0) H 06/14/20 04:00 Calcium 7.6 mg/dL (8.4-10.2) L 06/14/20 15:50 Magnesium 2.10 mg/dL (1.7-2.3) 06/14/20 15:50 Assessment and Plan # Acute Kidney Failure, Hyperkalemia, Metabolic Acidosis, Azotemia: due to extensive cardiopulmonary arrest in conjunction with liver failure, suspect a noxic brain injury. Very poor prognosis. Discussed case and prognosis with daughter at length over the phone. Patient does have indications for emergent renal replacement therapy given severe hyperkalemia. However, given likely anoxic brain injury, suspect that renal replacement therapy will not help overall outcome, and this was discussed with daughter. Additionally, discussed that renal replacement therapy requires insertion of catheter and dialysis itself will be difficult given hypotension and overall poor clinical condition. However, unless patient/family have decided completely against supportive measures and are awaiting official declaration of brain , dialysis as a supportive option is possible despite these issues. Daughter does note understanding of the risks and benefits of renal replacement therapy but currently feels that every chance should be given for her father's survival until there is an official declaration of . - consult to vascular for vascath placement, appreciate Dr. Peterson et al - STAT HD orders placed for hyperkalemia - will assess ongoing HD needs daily, suspect will need additional session tomorrow if tolerating, will use low blood flows and 0L UF given hypotension # Cardiopulmonary arrest: appreciate cardiology, pulmonary. On max dose pressors. # Suspected anoxic brain injury: appreciate neurology input # Hypotension due to cardiogenic shock # NSTEMI # Liver Failure, Lactic Acidosis # Respiratory Failure # Potential Seizure Activity CC time >32 minutes
[2020-06-14] MEDS ORDERED: SODIUM CHLORIDE 0.9% 100 ML IV PRN (18:21)
[2020-06-14] MEDS ORDERED: INSULIN REGULAR, HUMAN 100 UNIT/ML 3ML VIAL IV ONE (18:37)
--- NOTE | 2020-06-14 20:13 | Operative Report ---
Operative Report Operative Report: Exam: Ultrasound-guided placement of Vas-Cath Clinical indication: Patient with a history of cardiac arrest, hyperkalemia and acute renal failure Date: 06/14/2020 Procedure: Following an explanation of the risks, benefits and alternatives; written informed consent was obtained. The procedure was performed at bedside in the emergency department. Initial ultrasound evaluation of the patient's right groin demonstrated a patent right common femoral vein. The patient's right groin was prepped and draped in the usual sterile fashion. 1% lidocaine was used for anesthesia. Under ultrasound guidance, a 7 cm 18-gauge needle was advanced into the right common femoral vein. There was prompt return of nonpulsatile blood. A 0.035 guidewire was then advanced centrally. The needle was removed and following serial dilation over the guidewire, a 30 cm dialysis catheter was advanced over the guidewire centrally. The guidewire was removed. Nonpulsatile blood return from all 3 ports. The catheter was flushed with sterile saline. The catheter was securely fastened to the skin surface using 2-0 nylon suture and a sterile dressing applied. The patient tolerated the procedure well. There were no immediate postprocedure complications. Sedation was not utilized secondary to patient's obtunded mental status. Continuous cardiopulmonary monitoring was utilized. Impression: Ultrasound-guided placement of Vas-Cath via the right common femoral vein.
[2020-06-14 21:00] LABS: Creatine Kinase MB 17.1 ng/mL (0.0-4.0)
[2020-06-14] MEDS ORDERED: SODIUM CHLORIDE 0.9% 500 ML 500 ML IV ONE (21:11)
[2020-06-14] MEDS ORDERED: SODIUM CHLORIDE 0.9% 1000 ML 2,000 ML IV SCH (21:15)
[2020-06-14 21:25] LABS: Hepatitis B Surface Antigen Non-Reactive (Negative); Hepatitis C Virus Antibody Non-Reactive (NonReactive)
[2020-06-15 01:43] LABS: Calcium 8.5 mg/dL (8.4-10.2)
[2020-06-15] MEDS: NORepinephrine/NS 4 MG-250 ML 4 MG/250 ML BAG IV SCH ×3 (02:01→06:19)
[2020-06-15] MEDS: SODIUM BICARBONATE 150 MEQ in DEXTROSE 5% IN WATER 1,000 ML IV SCH (02:08)
[2020-06-15] MEDS: HEPARIN/ 0.45% NACL DRIP 25,000 UNIT/500 ML BAG IV SCH (02:08)
--- NOTE | 2020-06-15 02:51 | Consultation ---
PULMONARY CRITICAL CARE CONSULTATION I should premise this note by stating that I was informed of this patient's presence in the Emergency Room at about 1300 hours today on the date of dictation. CHIEF COMPLAINT AND HISTORY OF PRESENT ILLNESS: The patient is a 74-year-old male, past medical history actually unknown as of this time, who was brought into the Emergency Room from a local gas station in full cardiac arrest according to the records. He apparently went to the [place] and then collapsed. When they got there, they found him in asystole. He did get shocked twice during ACLS and resuscitation. He got amiodarone. Unclear if the patient went into VFib or V-tach for the arrest. There was return of spontaneous circulation after the 2nd shock. In the ER, he lost his pulse again. Again, another round of ACLS was started. Again, there was return of spontaneous circulation. Central line was placed by the ER physician and he was intubated on the mechanical ventilator. I got a call from his nurse this morning about the patient needing some attention. When I came down to the Emergency Room, I found him on the mechanical ventilator. He was on I believe a rate of about 30, tidal volume is 450, FiO2 was about 60, O2 sats on the monitor were about 90%. He was essentially unresponsive. He did have some guppy type breathing like he was air hungry, do not have any history of vomiting or overt aspiration. With regards to the patient's tobacco use/abuse, I have no history. This really is as much of the history of presentation as I have. PAST MEDICAL HISTORY: He is obese. PAST SURGICAL HISTORY: Unknown. MEDICATIONS: He was on at the time I stopped by to see him were reviewed. Pertinent medications included the following: Tylenol 650 mg p.o. q. 4 hours p.r.n. mild pain or fevers, DuoNeb nebulizer treatments scheduled q.i.d., dopamine drip was going at 4 mcg per kilogram per minute, Pepcid 20 mg IV daily. He was on IV heparin standard protocol, I believe PE protocol. Keppra 1 gram IV q. 12 hours, Levaquin 500 mg IV q. 48 hours, Reglan 10 mg IV q. 6 hours p.r.n. nausea and vomiting, morphine sulfate 2 mg IV q. 4 hours p.r.n. moderate pain, Levophed drip was maxed at 30 mcg per minute, propofol 5 mcg per kilogram per minute and vasopressin drip was at 0.03 units per minute. ALLERGIES: Unknown. DIET: Obese gentleman. Acute weight loss or gain history is unknown. SOCIAL HISTORY: It seems like he lives in the community from the history that I can get; however, alcohol, tobacco or illicit drug use or abuse history is unknown. FAMILY HISTORY: Otherwise unknown. REVIEW OF SYSTEMS: Unobtainable secondary to the patient's medical and mental condition. Since he has been here, no gross hematochezia or melena, no gross hematuria, no hematemesis, no bloody tracheal secretions, and no witnessed seizures. Review of systems otherwise unobtainable or as in the body of history above. PHYSICAL EXAMINATION: VITAL SIGNS: On my examination at presentation here, temperature is unknown. I do not have a temperature recorded on the chart. Pulse is 86 at presentation, respiratory rate 34, blood pressure 153/63, O2 sats were 91% at that time, inspired oxygen concentration was unknown. When I stopped by to see him, O2 sats were about 91% that was on FiO2 of 60% on the above-mentioned vent settings. GENERAL: This is an elderly looking male, obese, normocephalic, atraumatic really on the mechanical ventilator with moderately increased respiratory effort at rest. HEAD, EYES, EARS, NOSE AND THROAT: Anicteric. No conjunctival erythema. Oropharynx was moist. ET tube was in place, taped at the lips around 24 cm. No gross jugular venous distention. He had a right IJ central line in place without significant bleeding or exudation around the stoma. LUNGS: Auscultation of both lung sierra significant only for faint inspiratory crackles in the bases. Diminished bilateral breath sounds. No wheezing. HEART: Heart sounds 1 and 2 were heard. They were regular in rate and rhythm at the time of my evaluation without rubs or murmurs. Initially, he was in bradycardic rhythm, pulse in the 30s and appeared to be heading towards another round of resuscitation. ABDOMEN: Soft, full. Bowel sounds are positive. Nontender. No palpable hepatosplenomegaly. EXTREMITIES: Without overt digital clubbing or cyanosis, no pedal edema. Pedal pulses are 2+ bilaterally. NEUROLOGIC: Pupils are equal, round, about 3 mm, sluggishly reactive to light. Extraocular muscle movements could not be assessed. Otherwise, he was lethargic towards obtunded. SKIN: Normal turgor in the areas examined without overt cellulitis or rash. He had red spots to his skin over the xiphoid process region. It is unclear if there was some ecchymosis. Please see the wound care nurse's note for full description of her skin. PSYCHIATRIC: Mood and affect could not be assessed. LABORATORY DATA: From my review are as follows: Admission white cell count 14,100, hemoglobin 12.8, hematocrit 40.2, platelet count 207. No band forms on the manual differential. INR 1.36. Arterial blood gas then showed a pH of 7.22, pCO2 of 40, pO2 of 92, that was on 100% FiO2. Serum sodium was 140, potassium 4.0, chloride 102, bicarbonate 19, BUN 18, creatinine 1.5, glucose 246. AST was slightly elevated at 53. Initial troponin was actually normal. Most recent lab draws: White count is 22,800 today, platelet count is still 244. ABG just drawn shows a pH of 7.13 I believe, it was a venous stick. His CPK was up to 1642. His serum sodium was 7.5 earlier and he reportedly got a cocktail. No microbiology studies. CT of the head was done at admission. I have reviewed the report, no focal mass, hemorrhage, hydrocephalus or acute process. Chest x-ray was done. Chest x-ray post-intubation post-central line yesterday shows ET tube in good position. Increased interstitial markings bilaterally. Cardiovascular silhouette is difficult to define suggesting some element of interstitial fibrosis. The gastric bubble is enlarged. Central line tip is in the distal SVC/right atrial junction. Repeat chest x-ray this morning shows pretty much the same findings. ET tube tip is at the lower level of the clavicular heads. ASSESSMENT: 1. Acute hypoxemic respiratory failure, on mechanical ventilatory support. 2. Status post cardiopulmonary arrest with return of spontaneous circulation. 3. Severe sepsis with shock. 4. Acute encephalopathy, toxic metabolic. 5. Leukocytosis. 6. Obesity. 7. Acute kidney injury. BUN now 40 with a creatinine of 3.4. 8. Hyperglycemia. PLAN: From a respiratory standpoint, I have increased the set minute ventilation, increase the tidal volumes to 600, will keep the rate at 30 for now to compensate for this metabolic acidosis that he has at this point. I will get repeat arterial blood gases and adjust as necessary. Oxygen will be weaned to keep sats greater than or equal to about 92%. His overall presentation will be reevaluated and he may benefit from coronavirus-19 test, coming in with bilateral pulmonary infiltrates with initial cardiac arrest. I will get some inflammatory markers, D-dimers, LDH, ferritin, all other rapid coronavirus test. Infectious Disease consultation will be requested for further direction in that issue. With regards to his hypotension, he has responded well to normal saline bolus and we have had to max the dopamine. His pulse also responded to 2 push 2 amps of bicarbonate and his pulse is now in the 100s. We will wean vasopressors to keep mean arterial pressures greater than or equal to about 65%. A 2D echocardiogram will be ordered. A FAST scan in the Emergency Room suggests a good ejection fraction and some dilatation of the right ventricle, possibly consistent with a venous thromboembolic event/an acute PE. We will continue the full anticoagulation at this point. Cardiology consultation will be at the behest of the attending physician. Enteral nutrition will be the feeding modality of choice. We will continue empiric Levaquin monotherapy for now. I will get a procalcitonin level to aid clinical decision making. Nephrology evaluation has reportedly been placed. He has received a GI cocktail; however, I am going to repeat the BMP stat. He may need renal replacement therapy, especially with the significant worsening of his renal status. He is appropriately on GI prophylaxis. Flu and pneumonia vaccination will be addressed. Further interventions will depend on his clinical progress. He is critically ill on life-sustaining interventions including mechanical ventilatory support and vasopressors, at high risk of from cardiopulmonary system decompensation. Attempts will be made to reach out to the next of kin after stabilization. At this time, I spent about 35-40 minutes of critical care time without overlap and excluding any procedural time that may be necessary. JOB# [id number] BÁRBARA/NELSY
--- NOTE | 2020-06-15 03:48 | XRay Report ---
CHEST 1 VIEW INDICATION / CLINICAL INFORMATION: follow up respiratory failure. COMPARISON: Chest radiograph one day prior FINDINGS: SUPPORT DEVICES: Stable position of endotracheal tube, enteric tube, and right IJ central venous cath eter. HEART / MEDIASTINUM: Stable. LUNGS / PLEURA: Bilateral interstitial pulmonary opacities are not significantly changed. No large pl eural effusion. No pneumothorax. ADDITIONAL FINDINGS: No significant additional findings. IMPRESSION: 1. No significant change. Signer Name: Amy Bustillo MD Signed: 06/15/2020 3:44 AM Workstation Name: [id number]
[2020-06-15 04:56] LABS: ABG Base Excess -6.9 mmol/L (-2.0-3.0); ABG HCO3 17.9 mmol/L (20.0-26.0); ABG Methemoglobin 0.5 % (0.0-1.5); ABG Oxygen Saturation 98.7 % (95.0-99.0); ABG PCO2 33.7 mm Hg; ABG PH 7.345 pH Units (7.350-7.450)
[2020-06-15 05:42] LABS: Hematocrit 35.3 % (35.5-45.6); Hemoglobin 11.5 gm/dl (11.8-15.2); Mean Corpuscular HGB Conc 33 % (32-34); Mean Corpuscular Volume 98 fl (84-94); Red Blood Count 3.61 M/mm3 (3.65-5.03); Red Cell Distribution Width 19.6 % (13.2-15.2)
[2020-06-15 05:47] LABS: Platelet Count 70 K/mm3 (140-440)
[2020-06-15 05:48] LABS: Albumin 2.6 g/dL (3.9-5); Calcium 8.1 mg/dL (8.4-10.2)
--- NOTE | 2020-06-15 08:49 | Consultation ---
History of Present Illness - Reason for Consult Consult date: 06/15/20 Severe sepsis Requesting physician: GABY STEWART - History of Present Illness 71 years old male with unknown past medical history brought to the ED via EMS on 06/13/2020 after being [place] local [place] station in a full cardiac arrest. Per EMS patient walked to the questionnaire and then collapsed all of a sudden. Initially EMS found the patient in asystole, patient anyway was shocked twice, unclear if he went into V. fib or V. tach. Patient regained circulation after second shock. In route patient became pulseless again found in PEA. ACLS was continued in the emergency room. Patient was intubated. Patient started on Levophed. On arrival, temperature 99.8, HR 86, RR 34, O2 sat 91%, BP 153/63. Initial WBC 14.1. Lactate 7.6. Creatinine 1.5, increased to 3.4. Troponin increased to 0.176. AST 53 now 575. ALT 35 now 248. D-dimer > 10,000. CT of the head shows no acute abnormality. Chest x-ray shows increased interstitial markings. Patient currently intubated unable to provide history. Review of Systems: Unable to provide patient intubated Past History Past Medical History: other (Not available) Past Surgical History: Other (Not availabke) Social history: lives with family, full code Family history: other (Not available) Medications and Allergies Allergies Allergy/AdvReac Type Severity Reaction Status Date / Time Unable to Assess Allergy Unverified 06/13/20 17:34 Active Meds: Active Medications Acetaminophen (Tylenol) 650 mg PO Q4H PRN PRN Reason: Pain MILD(1-3)/Fever >100.5/OMER Albuterol (Proventil) 2.5 mg IH Q3HRT PRN PRN Reason: Wheezing Albuterol/Ipratropium (Duoneb *Not For Prn Use*) 1 ampul IH QIDRT [facility] Last Admin: 06/14/20 20:16 Dose: 1 ampul Documented by: Lipase/Protease/Amylase (Daniel Price 10,500 Unit) 1 each FEEDTUBE PRN PRN PRN Reason: For Clogged Feeding Tube Famotidine (Pepcid) 20 mg IV DAILY [facility] Last Admin: 06/14/20 10:17 Dose: 20 mg Documented by: Hydrophilic Ointment (Vaseline Lip Therapy) 1 applic TP Q2HR PRN PRN Reason: Dry Lips Propofol (Propofol) 500 mg in 50 mls @ 2.379 mls/hr IV TITR DARREN; Protocol Last Admin: 06/14/20 04:49 Dose: 5 mcg/kg/min, 2.379 mls/hr Documented by: Norepinephrine (Levophed Drip 4 Mg/Ns 250 Ml) 4 mg in 250 mls @ 7.5 mls/hr IV TITR DARREN; Protocol Last Admin: 06/15/20 06:19 Dose: 30 mcg/min, 112.5 mls/hr Documented by: Levetiracetam 1,000 mg/ (Dextrose) 110 mls @ 400 mls/hr IV Q12HR DARREN Last Admin: 06/14/20 22:37 Dose: 400 mls/hr Documented by: Heparin Sodium/Sodium Chloride (Heparin/ 0.45% Nacl-25,000 Unit/500 Ml) 25,000 unit in 500 mls @ 20 mls/hr IV TITRATE DARREN; Protocol Last Admin: 06/15/20 02:08 Dose: 1,000 units/hr, 20 mls/hr Documented by: Vasopressin 20 unit/ Sodium (Chloride) 101 mls @ 9.09 mls/hr IV TITR DARREN; Protocol Last Admin: 06/14/20 09:55 Dose: 0.03 units/min, 9.09 mls/hr Documented by: Levofloxacin/Dextrose (Levaquin 500mg/100ml) 500 mg in 100 mls @ 100 mls/hr IV Q48H DARREN; Protocol Last Admin: 06/14/20 10:51 Dose: 100 mls/hr Documented by: Dopamine HCl/Dextrose (Intropin Drip 800 Mg/D5w 250 Ml) 800 mg in 250 mls @ 2.977 mls/hr IV TITR DARREN; Protocol Last Titration: 06/15/20 02:30 Dose: 6 mcg/kg/min, 8.93 mls/hr Documented by: Sodium Bicarbonate 150 meq/ (Dextrose) 1,150 mls @ 100 mls/hr IV DIRECT DARREN Stop: 06/17/20 01:59 Last Admin: 06/15/20 02:08 Dose: 100 mls/hr Documented by: Sodium Chloride (Nacl 0.9%) 100 mls @ 999 mls/hr IV DAREK PRN PRN Reason: Hypotension Sodium Chloride (Nacl 0.9% 1000 Ml) 2,000 mls @ 150 mls/hr IV DIRECT [facility] Last Admin: 06/14/20 22:37 Dose: 150 mls/hr Documented by: Lorazepam (Ativan) 1 mg IV Q1H PRN PRN Reason: Agitation Last Admin: 06/13/20 20:59 Dose: 1 mg Documented by: Metoclopramide HCl (Reglan) 10 mg IV Q6H PRN PRN Reason: Nausea And Vomiting Morphine Sulfate (Morphine) 2 mg IV Q4H PRN PRN Reason: Pain, Moderate (4-6) Multi-Ingred Cream/Lotion/Oil/Oint (Artificial Tears Ophth Oint) 1 applic OU Q4 HR PRN PRN Reason: Dry Eye(s) Ondansetron HCl (Zofran) 4 mg IV Q8H PRN PRN Reason: Nausea And Vomiting Simple Syrup (Simple Syrup) 15 ml FEEDTUBE PRN PRN PRN Reason: Hypoglycemia Simple Syrup (Simple Syrup) 30 ml FEEDTUBE PRN PRN PRN Reason: Hypoglycemia Sodium Bicarbonate (Sodium Bicarbonate) 325 mg FEEDTUBE PRN PRN PRN Reason: For Clogged Feeding Tube Sodium Chloride (Sodium Chloride Flush Syringe 10 Ml) 10 ml IV BID [facility] Last Admin: 06/14/20 10:17 Dose: 10 ml Documented by: Sodium Chloride (Sodium Chloride Flush Syringe 10 Ml) 10 ml IV PRN PRN PRN Reason: LINE FLUSH Physical Examination - Physical Exam Narrative exam: General appearance: Sedated intubated Eyes: anicteric sclerae, moist conjunctivae; no lid-lag; PERRLA HENT: Normocephalic, Atraumatic; normal external ears, nares open, oropharynx clear limited endotracheal tube in place Neck: supple, tracheal midline, no JVD Lungs: Diminished breath sound bilaterally CV: RRR no murmur Abdomen: Soft, non-tender Extremities: no edema, no cyanosis Skin: Patchy scaly lesion in the periumbilical area Psych: Sedated Neuro: Sedated Right femoral Vas-Cath in place - Constitutional Vitals: Vital Signs Temp Pulse Resp BP Pulse Ox 98.8 F 124 H 18 132/55 96 06/14/20 23:50 06/15/20 04:56 06/15/20 03:45 06/15/20 04:56 06/15/20 04:56 Temperature -Last 24 Hours Temperature 98.8 F Temperature 99.8 F Results - Labs CBC & Chem 7: 06/15/20 04:56 06/15/20 04:56 Labs: Abnormal lab results 06/14/20 06/14/20 06/14/20 Range/Units 07:22 07:22 07:22 WBC (4.5-11.0) K/mm3 RBC (3.65-5.03) M/mm3 Hgb (11.8-15.2) gm/dl Hct (35.5-45.6) % MCV (84-94) fl RDW (13.2-15.2) % Plt Count (140-440) K/mm3 Seg Neuts % (Manual) 88.0 H (40.0-70.0) % Lymphocytes % (Manual) 7.0 L (13.4-35.0) % Seg Neutrophils # Man 20.1 H (1.8-7.7) K/mm3 Monocytes # (Manual) 1.1 H (0.0-0.8) K/mm3 D-Dimer (0-234) ng/mlDDU ABG pH (7.350-7.450) pH Units ABG pO2 (80.0-90.0) mm Hg ABG HCO3 (20.0-26.0) mmol/L ABG Base Excess (-2.0-3.0) mmol/L ABG Hemoglobin (14.0-18.0) gm/dl Potassium 7.5 H* D (3.6-5.0) mmol/L Carbon Dioxide (22-30) mmol/L BUN (9-20) mg/dL Creatinine 3.4 H D (0.8-1.3) mg/dL Glucose (75-100) mg/dL Lactic Acid (0.7-2.0) mmol/L Calcium (8.4-10.2) mg/dL Ferritin (30.0-300.0) ng/mL Total Bilirubin (0.1-1.2) mg/dL AST (5-40) units/L ALT (7-56) units/L Lactate Dehydrogenase (91-180) units/L Total Creatine Kinase (55-170) units/L CK-MB (CK-2) (0.0-4.0) ng/mL Troponin T 0.318 H* D (0.00-0.029) ng/mL Total Protein (6.3-8.2) g/dL Albumin (3.9-5) g/dL 06/14/20 06/14/20 06/14/20 Range/Units 12:07 15:50 15:50 WBC (4.5-11.0) K/mm3 RBC (3.65-5.03) M/mm3 Hgb (11.8-15.2) gm/dl Hct (35.5-45.6) % MCV (84-94) fl RDW (13.2-15.2) % Plt Count (140-440) K/mm3 Seg Neuts % (Manual) (40.0-70.0) % Lymphocytes % (Manual) (13.4-35.0) % Seg Neutrophils # Man (1.8-7.7) K/mm3 Monocytes # (Manual) (0.0-0.8) K/mm3 D-Dimer (0-234) ng/mlDDU ABG pH (7.350-7.450) pH Units ABG pO2 (80.0-90.0) mm Hg ABG HCO3 (20.0-26.0) mmol/L ABG Base Excess (-2.0-3.0) mmol/L ABG Hemoglobin (14.0-18.0) gm/dl Potassium (3.6-5.0) mmol/L Carbon Dioxide (22-30) mmol/L BUN (9-20) mg/dL Creatinine (0.8-1.3) mg/dL Glucose (75-100) mg/dL Lactic Acid (0.7-2.0) mmol/L Calcium (8.4-10.2) mg/dL Ferritin 9718.0 H (30.0-300.0) ng/mL Total Bilirubin (0.1-1.2) mg/dL AST (5-40) units/L ALT (7-56) units/L Lactate Dehydrogenase 3383 H (91-180) units/L Total Creatine Kinase 1642 H (55-170) units/L CK-MB (CK-2) 12.8 H (0.0-4.0) ng/mL Troponin T 0.365 H* (0.00-0.029) ng/mL Total Protein (6.3-8.2) g/dL Albumin (3.9-5) g/dL 06/14/20 06/14/20 06/14/20 Range/Units 15:50 15:50 15:50 WBC (4.5-11.0) K/mm3 RBC (3.65-5.03) M/mm3 Hgb (11.8-15.2) gm/dl Hct (35.5-45.6) % MCV (84-94) fl RDW (13.2-15.2) % Plt Count (140-440) K/mm3 Seg Neuts % (Manual) (40.0-70.0) % Lymphocytes % (Manual) (13.4-35.0) % Seg Neutrophils # Man (1.8-7.7) K/mm3 Monocytes # (Manual) (0.0-0.8) K/mm3 D-Dimer > 75120 H (0-234) ng/mlDDU ABG pH (7.350-7.450) pH Units ABG pO2 (80.0-90.0) mm Hg ABG HCO3 (20.0-26.0) mmol/L ABG Base Excess (-2.0-3.0) mmol/L ABG Hemoglobin (14.0-18.0) gm/dl Potassium 7.4 H* (3.6-5.0) mmol/L Carbon Dioxide 14 L (22-30) mmol/L BUN 48 H (9-20) mg/dL Creatinine 4.2 H (0.8-1.3) mg/dL Glucose 48 L (75-100) mg/dL Lactic Acid 7.60 H* (0.7-2.0) mmol/L Calcium 7.6 L (8.4-10.2) mg/dL Ferritin (30.0-300.0) ng/mL Total Bilirubin (0.1-1.2) mg/dL AST (5-40) units/L ALT (7-56) units/L Lactate Dehydrogenase (91-180) units/L Total Creatine Kinase (55-170) units/L CK-MB (CK-2) (0.0-4.0) ng/mL Troponin T (0.00-0.029) ng/mL Total Protein (6.3-8.2) g/dL Albumin (3.9-5) g/dL 06/14/20 06/14/20 06/15/20 Range/Units 20:11 20:11 00:04 WBC (4.5-11.0) K/mm3 RBC (3.65-5.03) M/mm3 Hgb (11.8-15.2) gm/dl Hct (35.5-45.6) % MCV (84-94) fl RDW (13.2-15.2) % Plt Count (140-440) K/mm3 Seg Neuts % (Manual) (40.0-70.0) % Lymphocytes % (Manual) (13.4-35.0) % Seg Neutrophils # Man (1.8-7.7) K/mm3 Monocytes # (Manual) (0.0-0.8) K/mm3 D-Dimer (0-234) ng/mlDDU ABG pH (7.350-7.450) pH Units ABG pO2 (80.0-90.0) mm Hg ABG HCO3 (20.0-26.0) mmol/L ABG Base Excess (-2.0-3.0) mmol/L ABG Hemoglobin (14.0-18.0) gm/dl Potassium (3.6-5.0) mmol/L Carbon Dioxide (22-30) mmol/L BUN (9-20) mg/dL Creatinine (0.8-1.3) mg/dL Glucose (75-100) mg/dL Lactic Acid 8.70 H* 6.00 H* (0.7-2.0) mmol/L Calcium (8.4-10.2) mg/dL Ferritin (30.0-300.0) ng/mL Total Bilirubin (0.1-1.2) mg/dL AST (5-40) units/L ALT (7-56) units/L Lactate Dehydrogenase (91-180) units/L Total Creatine Kinase 2057 H (55-170) units/L CK-MB (CK-2) 17.1 H (0.0-4.0) ng/mL Troponin T (0.00-0.029) ng/mL Total Protein (6.3-8.2) g/dL Albumin (3.9-5) g/dL 06/15/20 06/15/20 06/15/20 Range/Units 01:09 01:09 04:20 WBC (4.5-11.0) K/mm3 RBC (3.65-5.03) M/mm3 Hgb (11.8-15.2) gm/dl Hct (35.5-45.6) % MCV (84-94) fl RDW (13.2-15.2) % Plt Count (140-440) K/mm3 Seg Neuts % (Manual) (40.0-70.0) % Lymphocytes % (Manual) (13.4-35.0) % Seg Neutrophils # Man (1.8-7.7) K/mm3 Monocytes # (Manual) (0.0-0.8) K/mm3 D-Dimer (0-234) ng/mlDDU ABG pH 7.345 L (7.350-7.450) pH Units ABG pO2 149.0 H (80.0-90.0) mm Hg ABG HCO3 17.9 L (20.0-26.0) mmol/L ABG Base Excess -6.9 L (-2.0-3.0) mmol/L ABG Hemoglobin 12.0 L (14.0-18.0) gm/dl Potassium (3.6-5.0) mmol/L Carbon Dioxide 20 L (22-30) mmol/L BUN 28 H (9-20) mg/dL Creatinine 2.9 H (0.8-1.3) mg/dL Glucose 125 H (75-100) mg/dL Lactic Acid 6.70 H* (0.7-2.0) mmol/L Calcium (8.4-10.2) mg/dL Ferritin (30.0-300.0) ng/mL Total Bilirubin (0.1-1.2) mg/dL AST (5-40) units/L ALT (7-56) units/L Lactate Dehydrogenase (91-180) units/L Total Creatine Kinase (55-170) units/L CK-MB (CK-2) (0.0-4.0) ng/mL Troponin T (0.00-0.029) ng/mL Total Protein (6.3-8.2) g/dL Albumin (3.9-5) g/dL 06/15/20 06/15/20 06/15/20 Range/Units 04:56 04:56 04:56 WBC 12.9 H (4.5-11.0) K/mm3 RBC 3.61 L (3.65-5.03) M/mm3 Hgb 11.5 L (11.8-15.2) gm/dl Hct 35.3 L D (35.5-45.6) % MCV 98 H (84-94) fl RDW 19.6 H (13.2-15.2) % Plt Count 70 L (140-440) K/mm3 Seg Neuts % (Manual) (40.0-70.0) % Lymphocytes % (Manual) (13.4-35.0) % Seg Neutrophils # Man (1.8-7.7) K/mm3 Monocytes # (Manual) (0.0-0.8) K/mm3 D-Dimer (0-234) ng/mlDDU ABG pH (7.350-7.450) pH Units ABG pO2 (80.0-90.0) mm Hg ABG HCO3 (20.0-26.0) mmol/L ABG Base Excess (-2.0-3.0) mmol/L ABG Hemoglobin (14.0-18.0) gm/dl Potassium 5.2 H (3.6-5.0) mmol/L Carbon Dioxide 18 L (22-30) mmol/L BUN 32 H (9-20) mg/dL Creatinine 3.5 H (0.8-1.3) mg/dL Glucose 108 H (75-100) mg/dL Lactic Acid 8.40 H* (0.7-2.0) mmol/L Calcium 8.1 L (8.4-10.2) mg/dL Ferritin (30.0-300.0) ng/mL Total Bilirubin 1.80 H (0.1-1.2) mg/dL AST 9959 H (5-40) units/L ALT 3555 H (7-56) units/L Lactate Dehydrogenase (91-180) units/L Total Creatine Kinase (55-170) units/L CK-MB (CK-2) (0.0-4.0) ng/mL Troponin T 1.440 H* D (0.00-0.029) ng/mL Total Protein 5.0 L D (6.3-8.2) g/dL Albumin 2.6 L (3.9-5) g/dL Assessment and Plan Cultures: none Assessment: 71 years old male with unknown past medical history brought to the ED via EMS on 06/13/2020 after being [place] in a full cardiac arrest: #Outside of the hospital cardiac arrest: Resuscitated #Severe sepsis with septic shock multiorgan system failure: Presently status post outside hospital cardiac arrest, with leukocytosis, MCKENNA, elevated LFTs, elevated blood; unclear etiology ? Pneumonia ? COVID-19 #Acute hypoxic respiratory failure: Intubated #MCKENNA: To start hemodialysis, renal on board #Transaminitis: Secondary to cardiac arrest, septic shock #Elevated D-dimer: She rule out PE/DVT #Possible bilateral pneumonia:? Rule out aspiration pneumonia versus COVID-19 Recommendations: -Obtain STAT UA, urine culture, tracheal aspirate cultures, blood cultures -Start cefepime renally adjusted -Start vancomycin renally adjusted -SARS-CoV-2 PCR -Femoral Vas-Cath should be removed in the next 24 hours Will follow Georgia Madrigal MD Infectious Diseases Set Up [employer] Technician [facility] ([facility] M [phone] O [phone]
[2020-06-15] MEDS: IPRATROPIUM/ALBUTEROL SULFATE 3 ML AMPUL.NEB IH SCH ×2 (09:17→13:43)
--- NOTE | 2020-06-15 09:45 | Progress Note ---
History Interval history: Acute hypoxic Respiratory failure S/p cardiac arrest intubated Vent support Marketing Data Specialist consulted Cardiopulmonary arrest Patient revived and on Pressors Intubated Sedated Anoxic encephalopathy EEG pending Given sudden collapse and revival by EMS Neuro consulted NSTEMI (non-ST elevated myocardial infarction) Patient on Heparin drip Troponins elevated [place] of Cardiac arrest maybe vfib/severe CAD Cardiology consulted 06/14/20. Pt on maximal dosage of levophed, vasopressin and dopamine. Cardiology D/cd amiodarone in setting of liver shock and unclear rhythm in the field per EMS. Cont. heparin gtt in setting of CE elevation. Cont to trend Christy and f/u ECG in AM. Initiate ASA if PO access is obtained. No BB in setting of hypotension. No statin in setting of elevated LFTs. F/U echo Nephrology has been consulted in setting of ARF an d hyperkalemia. Insulin/D50/calcium gluconate and kayexalate given. COVID-19 testing per primary team in setting of infiltrate on CXR and leukocytosis. Pt is unresponsive, not sedated, anoxic brain injury suspected. Neurology has been consulted. Overall poor prognosis. 06/15/2020. Continue pressors to maintain MAP > 65. Continue IV antibiotics for sepsis/septic shock. ID following. Vas-Cath placed yesterday for emergent hemodialysis in the setting of ARF and severe hyperkalemia. Continue bicarbonate drip. Nephrology following. Patient with type II DC secondary to sepsis/septic shock. Also, patient with significant lactic acidosis related to cardiopulmonary arrest and septic shock. Continue heparin and amiodarone per cardiology recommendations. EEG ordered for anoxic brain injury. Continue Keppra for? Seizures versus myoclonic jerks. Neurology following and reports overall prognosis is poor The high probability of a clinically significant, sudden or life threatening deterioration of the [cardiac, renal and respoiratory] system(s) required my full and direct attention, intervention and personal management. The aggregate critical care time was [31] minutes. This time is in addition to time spent performing reported procedures but includes the following: [x] Data Review and interpretation [x] Patient assessment and monitoring of vital signs [x] Documentation [x] Medication orders and management Hospitalist Physical - Constitutional Vitals: Temp Pulse Resp BP Pulse Ox 98.8 F 118 H 25 H 119/56 92 06/14/20 23:50 06/15/20 09:16 06/15/20 09:16 06/15/20 08:00 06/15/20 08:00 General appearance: Present: other (intubated, unresponsive) HEART Score - HEART Score EKG: Non-specific Age: > 65 Troponin: Troponin T 1.440 ng/mL (0.00-0.029) H* D 06/15/20 04:56 Troponin: 1-3x normal limit Results - Labs CBC & Chem 7: 06/15/20 04:56 06/15/20 04:56 Labs: Laboratory Last Values WBC 12.9 K/mm3 (4.5-11.0) H 06/15/20 04:56 RBC 3.61 M/mm3 (3.65-5.03) L 06/15/20 04:56 Hgb 11.5 gm/dl (11.8-15.2) L 06/15/20 04:56 Hct 35.3 % (35.5-45.6) L D 06/15/20 04:56 MCV 98 fl (84-94) H 06/15/20 04:56 MCH 32 pg (28-32) 06/15/20 04:56 MCHC 33 % (32-34) 06/15/20 04:56 RDW 19.6 % (13.2-15.2) H 06/15/20 04:56 Plt Count 70 K/mm3 (140-440) L 06/15/20 04:56 [place] % (Auto) 6.1 % (0.0-7.3) 06/13/20 14:20 Eos % (Auto) 2.0 % (0.0-4.3) 06/13/20 14:20 [place] # (Auto) 0.8 K/mm3 (0.0-0.8) 06/13/20 14:20 Eos # (Auto) 0.3 K/mm3 (0.0-0.4) 06/13/20 14:20 Baso # (Auto) 0.1 K/mm3 (0.0-0.1) 06/13/20 14:20 Add Manual Diff Complete 06/14/20 07:22 Total Counted 100 06/14/20 07:22 Seg Neutrophils % 59.0 % (40.0-70.0) 06/13/20 14:20 Seg Neuts % (Manual) 88.0 % (40.0-70.0) H 06/14/20 07:22 Band Neutrophils % 0 % 06/14/20 07:22 Lymphocytes % (Manual) 7.0 % (13.4-35.0) L 06/14/20 07:22 Reactive Lymphs % (Man) 0 % 06/14/20 07:22 Monocytes % (Manual) 5.0 % (0.0-7.3) 06/14/20 07:22 Eosinophils % (Manual) 0 % (0.0-4.3) 06/14/20 07:22 Basophils % (Manual) 0 % (0.0-1.8) 06/14/20 07:22 Metamyelocytes % 0 % 06/14/20 07:22 Myelocytes % 0 % 06/14/20 07:22 Promyelocytes % 0 % 06/14/20 07:22 Blast Cells % 0 % 06/14/20 07:22 Nucleated RBC % Not Reportable 06/14/20 07:22 Seg Neutrophils # 8.3 K/mm3 (1.8-7.7) H 06/13/20 14:20 Seg Neutrophils # Man 20.1 K/mm3 (1.8-7.7) H 06/14/20 07:22 Band Neutrophils # 0.0 K/mm3 06/14/20 07:22 Lymphocytes # (Manual) 1.6 K/mm3 (1.2-5.4) 06/14/20 07:22 Abs React Lymphs (Man) 0.0 K/mm3 06/14/20 07:22 Monocytes # (Manual) 1.1 K/mm3 (0.0-0.8) H 06/14/20 07:22 Eosinophils # (Manual) 0.0 K/mm3 (0.0-0.4) 06/14/20 07:22 Basophils # (Manual) 0.0 K/mm3 (0.0-0.1) 06/14/20 07:22 Metamyelocytes # 0.0 K/mm3 06/14/20 07:22 Myelocytes # 0.0 K/mm3 06/14/20 07:22 Promyelocytes # 0.0 K/mm3 06/14/20 07:22 Blast Cells # 0.0 K/mm3 06/14/20 07:22 WBC Morphology Not Reportable 06/14/20 07:22 Hypersegmented Neuts Not Reportable 06/14/20 07:22 Hyposegmented Neuts Not Reportable 06/14/20 07:22 Hypogranular Neuts Not Reportable 06/14/20 07:22 Smudge Cells Not Reportable 06/14/20 07:22 Toxic Granulation Not Reportable 06/14/20 07:22 Toxic Vacuolation Not Reportable 06/14/20 07:22 Dohle Bodies Not Reportable 06/14/20 07:22 Pelger-Huet Anomaly Not Reportable 06/14/20 07:22 Casey Rods Not Reportable 06/14/20 07:22 Platelet Estimate Consistent w auto 06/14/20 07:22 Clumped Platelets Not Reportable 06/14/20 07:22 Plt Clumps, EDTA Not Reportable 06/14/20 07:22 Large Platelets Not Reportable 06/14/20 07:22 Giant Platelets Not Reportable 06/14/20 07:22 Platelet Satelliting Not Reportable 06/14/20 07:22 Plt Morphology Comment Not Reportable 06/14/20 07:22 RBC Morphology Not Reportable 06/14/20 07:22 Dimorphic RBCs Not Reportable 06/14/20 07:22 Polychromasia Not Reportable 06/14/20 07:22 Hypochromasia Not Reportable 06/14/20 07:22 Poikilocytosis Not Reportable 06/14/20 07:22 Anisocytosis Rare 06/14/20 07:22 Microcytosis Rare 06/14/20 07:22 Macrocytosis Not Reportable 06/14/20 07:22 Spherocytes Not Reportable 06/14/20 07:22 Pappenheimer Bodies Not Reportable 06/14/20 07:22 Sickle Cells Not Reportable 06/14/20 07:22 Target Cells Not Reportable 06/14/20 07:22 Tear Drop Cells Not Reportable 06/14/20 07:22 Ovalocytes Not Reportable 06/14/20 07:22 Helmet Cells Not Reportable 06/14/20 07:22 [place] Bodies Not Reportable 06/14/20 07:22 [place] Rings Not Reportable 06/14/20 07:22 [place] Cells Not Reportable 06/14/20 07:22 Bite Cells Not Reportable 06/14/20 07:22 Crenated Cell Not Reportable 06/14/20 07:22 Elliptocytes Not Reportable 06/14/20 07:22 Acanthocytes (Spur) Not Reportable 06/14/20 07:22 Rouleaux Not Reportable 06/14/20 07:22 Hemoglobin C Crystals Not Reportable 06/14/20 07:22 Schistocytes Not Reportable 06/14/20 07:22 Malaria parasites Not Reportable 06/14/20 07:22 [place]ardo Bodies Not Reportable 06/14/20 07:22 Hem Pathologist Commnt No 06/14/20 07:22 PT 17.1 Sec. (12.2-14.9) H 06/14/20 00:14 INR 1.40 (0.87-1.13) H 06/14/20 00:14 APTT 32.1 Sec. (24.2-36.6) 06/14/20 00:14 D-Dimer > 46281 ng/mlDDU (0-234) H 06/14/20 15:50 Heparin Anti-Xa Level 0.47 U.I./ml (0.3-0.7) 06/14/20 09:41 ABG pH 7.345 pH Units (7.350-7.450) L 06/15/20 04:20 ABG pCO2 33.7 mm Hg 06/15/20 04:20 ABG pO2 149.0 mm Hg (80.0-90.0) H 06/15/20 04:20 ABG HCO3 17.9 mmol/L (20.0-26.0) L 06/15/20 04:20 ABG O2 Saturation 98.7 % (95.0-99.0) 06/15/20 04:20 ABG O2 Content 16.7 (0.0-44) 06/15/20 04:20 ABG Base Excess -6.9 mmol/L (-2.0-3.0) L 06/15/20 04:20 ABG Hemoglobin 12.0 gm/dl (14.0-18.0) L 06/15/20 04:20 ABG Carboxyhemoglobin 0.9 % (0.0-5.0) 06/15/20 04:20 ABG Methemoglobin 0.5 % (0.0-1.5) 06/15/20 04:20 Oxyhemoglobin 97.3 % (95.0-99.0) 06/15/20 04:20 FiO2 55 % 06/15/20 04:20 Sodium 144 mmol/L (137-145) 06/15/20 04:56 Potassium 5.2 mmol/L (3.6-5.0) H 06/15/20 04:56 Chloride 105.9 mmol/L (98-107) 06/15/20 04:56 Carbon Dioxide 18 mmol/L (22-30) L 06/15/20 04:56 Anion Gap 25 mmol/L 06/15/20 04:56 BUN 32 mg/dL (9-20) H 06/15/20 04:56 Creatinine 3.5 mg/dL (0.8-1.3) H 06/15/20 04:56 Estimated GFR 17 ml/min 06/15/20 04:56 BUN/Creatinine Ratio 9 % 06/15/20 04:56 Glucose 108 mg/dL (75-100) H 06/15/20 04:56 Hemoglobin A1c 6.6 % (4-6) H 06/14/20 00:14 Lactic Acid 8.40 mmol/L (0.7-2.0) H* 06/15/20 04:56 Calcium 8.1 mg/dL (8.4-10.2) L 06/15/20 04:56 Magnesium 2.10 mg/dL (1.7-2.3) 06/14/20 15:50 Ferritin 9718.0 ng/mL (30.0-300.0) H 06/14/20 15:50 Total Bilirubin 1.80 mg/dL (0.1-1.2) H 06/15/20 04:56 Direct Bilirubin < 0.2 mg/dL (0-0.2) 06/13/20 14:20 Indirect Bilirubin 0.1 mg/dL 06/13/20 14:20 AST 9959 units/L (5-40) H 06/15/20 04:56 ALT 3555 units/L (7-56) H 06/15/20 04:56 Alkaline Phosphatase 97 units/L (35-129) 06/15/20 04:56 Lactate Dehydrogenase 3383 units/L (91-180) H 06/14/20 15:50 Total Creatine Kinase 2057 units/L (55-170) H 06/14/20 20:11 CK-MB (CK-2) 17.1 ng/mL (0.0-4.0) H 06/14/20 20:11 CK-MB (CK-2) Rel Index 0.8 (0-4) 06/14/20 20:11 Troponin T 1.440 ng/mL (0.00-0.029) H* D 06/15/20 04:56 Total Protein 5.0 g/dL (6.3-8.2) L D 06/15/20 04:56 Albumin 2.6 g/dL (3.9-5) L 06/15/20 04:56 Albumin/Globulin Ratio 1.1 % 06/15/20 04:56 Triglycerides 74 mg/dL (2-149) 06/13/20 16:52 Cholesterol 88 mg/dL (50-199) 06/13/20 16:52 LDL Cholesterol Direct 41 mg/dL (50-130) L 06/13/20 16:52 HDL Cholesterol 40 mg/dL (40-59) 06/13/20 16:52 Cholesterol/HDL Ratio 2.20 % 06/13/20 16:52 Hepatitis A IgM Ab Non-reactive (NonReactive) 06/14/20 15:30 Hep Bs Antigen Non-reactive (Negative) 06/14/20 15:30 Hep B Core IgM Ab Non-reactive (NonReactive) 06/14/20 15:30 Hepatitis C Antibody Non-reactive (NonReactive) 06/14/20 15:30 [place]/IV: IV Catheter Type [Right INT / Saline Lock Antecubital] Active Medications - Current Medications Current Medications: Generic Name Dose Route Start Last Admin Trade Name Freq PRN Reason Stop Dose Admin Acetaminophen 650 mg 06/13/20 22:48 Tylenol PO Q4H PRN Pain MILD(1-3)/Fever >100.5/OMER Albuterol 2.5 mg 06/13/20 23:07 Proventil IH Q3HRT PRN Wheezing Albuterol/Ipratropium 1 ampul 06/14/20 08:00 06/15/20 09:17 Duoneb *Not For Prn Use* IH 1 ampul QIDRT DARREN Administration Lipase/Protease/Amylase 1 each 06/13/20 22:[address] 10,500 Unit FEEDTUBE PRN PRN For Clogged Feeding Tube Famotidine 20 mg 06/14/20 10:00 06/14/20 10:17 Pepcid IV 20 mg DAILY DARREN Administration Hydrophilic Ointment 1 applic 06/13/20 15:11 Vaseline Lip Therapy TP Q2HR PRN Dry Lips Propofol 500 mg in 50 mls @ 2.379 mls/hr 06/13/20 20:00 06/14/20 04:49 Propofol IV 5 mcg/kg/min TITR DARREN 2.379 mls/hr Administration Protocol 5 MCG/KG/MIN Norepinephrine 4 mg in 250 mls @ 7.5 mls/hr 06/13/20 16:00 06/15/20 06:19 Levophed Drip 4 Mg/Ns 250 Ml IV 30 mcg/min TITR DARREN 112.5 mls/hr Administration Protocol 2 MCG/MIN Levetiracetam 1,000 mg/ 110 mls @ 400 mls/hr 06/13/20 22:00 06/14/20 22:37 Dextrose IV 400 mls/hr Q12HR DARREN Administration Heparin Sodium/Sodium Chloride 25,000 unit in 500 mls @ 20 mls/hr 06/13/20 23:00 06/15/20 02:08 Heparin/ 0.45% Nacl-25,000 Unit/500 Ml IV 1,000 units/hr TITRATE DARREN 20 mls/hr Administration Protocol 1,000 UNITS/HR Vasopressin 20 unit/ Sodium 101 mls @ 9.09 mls/hr 06/14/20 11:00 06/14/20 09:55 Chloride IV 0.03 units/min TITR DARREN 9.09 mls/hr Administration Protocol 0.03 UNITS/MIN Dopamine HCl/Dextrose 800 mg in 250 mls @ 2.977 mls/hr 06/14/20 14:00 06/15/20 02:30 Intropin Drip 800 Mg/D5w 250 Ml IV 6 mcg/kg/min TITR DARREN 8.93 mls/hr Titration Protocol 2 MCG/KG/MIN Sodium Bicarbonate 150 meq/ 1,150 mls @ 100 mls/hr 06/14/20 14:30 06/15/20 02:08 Dextrose IV 06/17/20 01:59 100 mls/hr DIRECT DARREN Administration Sodium Chloride 100 mls @ 999 mls/hr 06/14/20 18:21 Nacl 0.9% IV DAREK PRN Hypotension Sodium Chloride 2,000 mls @ 150 mls/hr 06/14/20 21:15 06/14/20 22:37 Nacl 0.9% 1000 Ml IV 150 mls/hr DIRECT DARREN Administration Cefepime HCl 2 gm in 100 mls @ 200 mls/hr 06/15/20 10:00 Cefepime/Ns 2 Gm/100 Ml IV Q24H DARREN Protocol Vancomycin HCl 1,500 mg/ 530 mls @ 333 mls/hr 06/15/20 10:00 Sodium Chloride IV 06/15/20 12:00 ONCE DARREN Protocol Lorazepam 1 mg 06/13/20 19:51 06/13/20 20:59 Ativan IV 1 mg Q1H PRN Administration Agitation Metoclopramide HCl 10 mg 06/13/20 22:48 Reglan IV Q6H PRN Nausea And Vomiting Morphine Sulfate 2 mg 06/13/20 22:48 Morphine IV Q4H PRN Pain, Moderate (4-6) Multi-Ingred Cream/Lotion/Oil/Oint 1 applic 06/13/20 15:11 Artificial Tears Ophth Oint OU Q4HR PRN Dry Eye(s) Ondansetron HCl 4 mg 06/13/20 22:48 Zofran IV Q8H PRN Nausea And Vomiting Simple Syrup 15 ml 06/13/20 22:56 Simple Syrup FEEDTUBE PRN PRN Hypoglycemia Simple Syrup 30 ml 06/13/20 22:56 Simple Syrup FEEDTUBE PRN PRN Hypoglycemia Sodium Bicarbonate 325 mg 06/13/20 22:56 Sodium Bicarbonate FEEDTUBE PRN PRN For Clogged Feeding Tube Sodium Chloride 10 ml 06/14/20 10:00 06/14/20 10:17 Sodium Chloride Flush Syringe 10 Ml IV 10 ml BID DARREN Administration Sodium Chloride 10 ml 06/13/20 22:48 Sodium Chloride Flush Syringe 10 Ml IV PRN PRN LINE FLUSH Nutrition/Malnutrition Assess - Dietary Evaluation Nutrition/Malnutrition Findings: Nutrition Notes Start: 06/14/20 09:30 Freq: Status: Active Protocol: Document 06/14/20 13:29 EN (Rec: 06/14/20 13:38 EN [id number]) Co-Sign 06/14/20 13:29 LM Nutrition Notes Need for Assessment generated from: MD Order Initial or Follow up Assessment Current Diagnosis Respiratory Failure Other Pertinent Diagnosis Anoxic encephalopathy, NSTEMI, hypotension, seizure d/o Current Diet TF Labs/Tests K+ 7.5 BUN 40 Cr 3.4 Glu 73 Pertinent Medications Norepinephrine Propofol at 2.379ml/hr ( providing 63 kcal) Height 5 ft 8 in Weight 79.379 kg [place] Body Weight (kg) 70.00 BMI 26.6 Weight Status Overweight Subjective/Other Information MD consult for write/manage TF . Pt intubated yesterday. Burn Absent Trauma Absent GI Symptoms None Current % PO Negligible Minimum of two criteria No physical signs of malnutrition #1 Nutrition Diagnosis Inadequate oral intake Etiology mechanical ventilation As Evidenced by Signs and Symptoms pt unable to consume PO Is patient on ventilator? Yes Is Patient Ambulatory and/or Out of Bed No REE-([facility]-confined to bed) [phone] Calculation Used for Recommendations [facility] Additional Notes Protein: 1.2-2g/kg (95-158g) Fluid: 1ml/kcal Nutrition Intervention Change Diet Order: Start TF Nutrition Support: Nepro 1.8 at 40 ml/hr Flush 170ml q4h Kcal 1,728 Protein (gm) 78 Fluid (mL) 698 Goal #1 TF start/tolerance Goal #2 Meet 75% of energy and protein needs via TF Anticipated Discharge Needs: unable to determine at this time Follow-Up By: 06/16/20 Additional Comments TF start/tolerance and K+/ renal labs
[2020-06-15] MEDS ORDERED: VANCOMYCIN 1,500 MG in SODIUM CHLORIDE 0.9% 500 ML 500 ML IV SCH (10:00)
[2020-06-15] MEDS ORDERED: VANCOMYCIN PHARMACY TO DOSE IV SCH (10:00)
[2020-06-15] MEDS ORDERED: CEFEPIME/NS 2 GM/100 ML 2 GM/100 ML BAG IV SCH (10:00)
[2020-06-15] MEDS: levETIRAcetam 1,000 MG in DEXTROSE 5% IN WATER 100 ML IV SCH (10:34)
[2020-06-15] MEDS: FAMOTIDINE 20 MG/2 ML INJ IV SCH (10:35)
--- NOTE | 2020-06-15 12:09 | Progress Note ---
Assessment and Plan S/p vascath placement and HD overnight. Cont supportive measures. EEG ordered for ? seizure activity. Neurology and nephrology are following. Cont present cardiac management. Initiate ASA if PO access is obtained. No BB in setting of hypotension. No statin in setting of elevated LFTs. Await echo. Recommend COVID-19 testing per primary team in setting of infiltrate on CXR and leukocytosis. Overall poor prognosis. The patient has been seen in conjunction with Dr. Stanton who agrees with the assessment and plan of care. - Patient Problems (1) Cardiopulmonary arrest Current Visit: Yes Status: Acute (2) Altered mental status Current Visit: Yes Status: Acute (3) Pneumonia Current Visit: Yes Status: Suspected (4) NSTEMI (non-ST elevated myocardial infarction) Current Visit: Yes Status: Acute (5) RBBB Current Visit: Yes Status: Acute (6) Sinus tachycardia Current Visit: Yes Status: Acute (7) Hypotension Current Visit: Yes Status: Acute (8) Acute renal failure Current Visit: Yes Status: Acute (9) Hyperkalemia Current Visit: Yes Status: Acute (10) Shock liver Current Visit: Yes Status: Acute (11) Acidosis Current Visit: Yes Status: Acute Subjective Date of service: 06/15/20 Principal diagnosis: cardiopulmonary arrest Interval history: remains intubated, sedated. Objective Last Vital Signs Temp 98.8 F 06/14/20 23:50 Pulse 116 H 06/15/20 10:30 Resp 18 06/15/20 10:30 BP 118/51 06/15/20 10:30 Pulse Ox 90 06/15/20 10:15 - Physical Examination General: Other (intubated, unresponsive) Cardiac: Positive: Regular Rhythm Lungs: Positive: Oxygen, Ventilated Respirations Neuro: Positive: Other (intubated, unresponsive) - Labs and Meds Cardiac Enzymes 06/14/20 06/14/20 06/14/20 Range/Units 12:07 15:50 20:11 AST (5-40) units/L Lactate Dehydrogenase 3383 H (91-180) units/L CK-MB (CK-2) 12.8 H 17.1 H (0.0-4.0) ng/mL 06/15/20 Range/Units 04:56 AST 9959 H (5-40) units/L Lactate Dehydrogenase (91-180) units/L CK-MB (CK-2) (0.0-4.0) ng/mL CBC 06/15/20 Range/Units 04:56 WBC 12.9 H (4.5-11.0) K/mm3 RBC 3.61 L (3.65-5.03) M/mm3 Hgb 11.5 L (11.8-15.2) gm/dl Hct 35.3 L D (35.5-45.6) % Plt Count 70 L (140-440) K/mm3 Comprehensive Metabolic Panel 06/14/20 06/15/20 06/15/20 Range/Units 15:50 01:09 04:56 Sodium 142 142 144 (137-145) mmol/L Potassium 7.4 H* 4.7 D 5.2 H (3.6-5.0) mmol/L Chloride 106.0 105.2 105.9 (98-107) mmol/L Carbon Dioxide 14 L 20 L 18 L (22-30) mmol/L BUN 48 H 28 H 32 H (9-20) mg/dL Creatinine 4.2 H 2.9 H 3.5 H (0.8-1.3) mg/dL Glucose 48 L 125 H 108 H (75-100) mg/dL Calcium 7.6 L 8.5 8.1 L (8.4-10.2) mg/dL AST 9959 H (5-40) units/L ALT 3555 H (7-56) units/L Alkaline Phosphatase 97 (35-129) units/L Total Protein 5.0 L D (6.3-8.2) g/dL Albumin 2.6 L (3.9-5) g/dL - Imaging and Cardiology EKG: report reviewed, image reviewed - Telemetry EKG Rhythm: Sinus Tachycardia - EKG Sinus rhythms and dysrhythmias: sinus tachycardia AV and intraventricular conduction: right bundle branch block
[2020-06-15 12:36] VITALS: BP 74/30
--- NOTE | 2020-06-15 12:49 | Progress Note ---
Assessment and Plan # Acute Kidney Failure, Hyperkalemia, Metabolic Acidosis, Azotemia: due to extensive cardiopulmonary arrest in conjunction with liver failure, suspect anoxic brain injury. Very poor prognosis. Previously discussed case and prognosis with daughter at length over the phone. Started on hemodialysis yesterday for hyperkalemia. However, given likely anoxic brain injury, suspect that renal replacement therapy will not help overall outcome, and this was discussed with daughter. Dialysis itself will be difficult given hypotension and overall poor clinical condition. Will continue HD prn until final end of life care decisions are made - appreciate Dr. Sewell and placement of vascath for emergent HD yesterday - can hold HD today, labs stable s/p HD last night, plan for HD tomorrow based on lytes - 500cc urine output noted, continue with strict I/Os - avoid nephrotoxins - continue supportive measures per ICU # Cardiopulmonary arrest: appreciate cardiology, pulmonary. On max dose pressors. # Suspected anoxic brain injury: appreciate neurology input # Hypotension due to cardiogenic shock # NSTEMI # Liver Failure, Lactic Acidosis # Respiratory Failure # Potential Seizure Activity Subjective Date of service: 06/15/20 Principal diagnosis: cardiopulmonary arrest Interval history: No changes from yesterday, remains intubated on multiple pressors Objective - Exam Narrative Exam: Not directly examined due to COVID-19 pandemic and PPE conservation strategy, seen through window - Vital Signs Vital signs: Vital Signs - 12hr 06/15/20 06/15/20 06/15/20 01:00 01:15 01:30 Pulse Rate 131 H 130 H 130 H Pulse Rate [ Anterior Bilateral Throughout] Respiratory 20 25 H 22 Rate Respiratory Rate [Anterior Bilateral Throughout] Blood Pressure 141/59 141/59 136/58 O2 Sat by Pulse 98 98 98 Oximetry 06/15/20 06/15/20 06/15/20 01:45 02:00 02:15 Pulse Rate 130 H 129 H 130 H Pulse Rate [ Anterior Bilateral Throughout] Respiratory 20 20 20 Rate Respiratory Rate [Anterior Bilateral Throughout] Blood Pressure 142/61 137/56 132/63 O2 Sat by Pulse 98 97 97 Oximetry 06/15/20 06/15/20 06/15/20 02:30 02:45 03:00 Pulse Rate 129 H 129 H 126 H Pulse Rate [ Anterior Bilateral Throughout] Respiratory 22 20 20 Rate Respiratory Rate [Anterior Bilateral Throughout] Blood Pressure 132/63 138/55 125/63 O2 Sat by Pulse 97 97 97 Oximetry 06/15/20 06/15/20 06/15/20 03:15 03:30 03:45 Pulse Rate 126 H 125 H 124 H Pulse Rate [ Anterior Bilateral Throughout] Respiratory 20 19 18 Rate Respiratory Rate [Anterior Bilateral Throughout] Blood Pressure 125/57 129/56 131/55 O2 Sat by Pulse 96 96 96 Oximetry 06/15/20 06/15/20 06/15/20 04:00 04:15 04:30 Pulse Rate 123 H 123 H 123 H Pulse Rate [ Anterior Bilateral Throughout] Respiratory 19 22 19 Rate Respiratory Rate [Anterior Bilateral Throughout] Blood Pressure 121/61 127/57 127/60 O2 Sat by Pulse 96 96 96 Oximetry 06/15/20 06/15/20 06/15/20 04:45 04:56 05:00 Pulse Rate 123 H 124 H 123 H Pulse Rate [ Anterior Bilateral Throughout] Respiratory 18 20 Rate Respiratory Rate [Anterior Bilateral Throughout] Blood Pressure 127/60 132/55 132/63 O2 Sat by Pulse 96 96 96 Oximetry 06/15/20 06/15/20 06/15/20 05:15 05:31 05:45 Pulse Rate 123 H 124 H 123 H Pulse Rate [ Anterior Bilateral Throughout] Respiratory 19 18 19 Rate Respiratory Rate [Anterior Bilateral Throughout] Blood Pressure 132/60 142/58 142/58 O2 Sat by Pulse 91 91 90 Oximetry 06/15/20 06/15/20 06/15/20 06:00 06:15 06:30 Pulse Rate 123 H 123 H 123 H Pulse Rate [ Anterior Bilateral Throughout] Respiratory 23 17 21 Rate Respiratory Rate [Anterior Bilateral Throughout] Blood Pressure 126/56 123/58 131/59 O2 Sat by Pulse 91 91 91 Oximetry 06/15/20 06/15/20 06/15/20 06:45 07:00 07:15 Pulse Rate 124 H 126 H 119 H Pulse Rate [ Anterior Bilateral Throughout] Respiratory 20 22 29 H Rate Respiratory Rate [Anterior Bilateral Throughout] Blood Pressure 120/62 128/60 128/60 O2 Sat by Pulse 91 91 90 Oximetry 06/15/20 06/15/20 06/15/20 07:31 07:45 08:00 Pulse Rate 72 103 H 120 H Pulse Rate [ Anterior Bilateral Throughout] Respiratory 21 20 19 Rate Respiratory Rate [Anterior Bilateral Throughout] Blood Pressure 56/33 98/52 119/56 O2 Sat by Pulse 80 L 89 92 Oximetry 06/15/20 06/15/20 06/15/20 08:15 08:30 08:45 Pulse Rate 119 H 118 H 119 H Pulse Rate [ Anterior Bilateral Throughout] Respiratory 21 19 18 Rate Respiratory Rate [Anterior Bilateral Throughout] Blood Pressure 121/51 122/50 125/59 O2 Sat by Pulse 92 92 91 Oximetry 06/15/20 06/15/20 06/15/20 09:01 09:15 09:16 Pulse Rate 74 71 Pulse Rate [ 118 H Anterior Bilateral Throughout] Respiratory 24 14 Rate Respiratory 25 H Rate [Anterior Bilateral Throughout] Blood Pressure 124/84 123/99 O2 Sat by Pulse 87 84 Oximetry 06/15/20 06/15/20 06/15/20 09:31 09:45 10:01 Pulse Rate 57 L 71 91 H Pulse Rate [ Anterior Bilateral Throughout] Respiratory 21 14 19 Rate Respiratory Rate [Anterior Bilateral Throughout] Blood Pressure 53/25 53/25 91/37 O2 Sat by Pulse 90 Oximetry 06/15/20 06/15/20 06/15/20 10:15 10:30 10:45 Pulse Rate 114 H 116 H 115 H Pulse Rate [ Anterior Bilateral Throughout] Respiratory 21 18 18 Rate Respiratory Rate [Anterior Bilateral Throughout] Blood Pressure 99/61 118/51 122/53 O2 Sat by Pulse 90 Oximetry 06/15/20 06/15/20 06/15/20 11:00 11:15 11:30 Pulse Rate 114 H 116 H 116 H Pulse Rate [ Anterior Bilateral Throughout] Respiratory 21 18 16 Rate Respiratory Rate [Anterior Bilateral Throughout] Blood Pressure 121/55 128/56 110/60 O2 Sat by Pulse 89 99 Oximetry 06/15/20 06/15/20 06/15/20 11:45 12:01 12:15 Pulse Rate 116 H 65 Pulse Rate [ Anterior Bilateral Throughout] Respiratory 19 22 20 Rate Respiratory Rate [Anterior Bilateral Throughout] Blood Pressure 110/60 74/30 74/30 O2 Sat by Pulse 91 81 L Oximetry 06/15/20 12:31 Pulse Rate Pulse Rate [ Anterior Bilateral Throughout] Respiratory 0 L Rate Respiratory Rate [Anterior Bilateral Throughout] Blood Pressure 74/30 O2 Sat by Pulse Oximetry - Lab 06/15/20 04:56 06/15/20 04:56 Most recent lab results ABG pH 7.345 pH Units (7.350-7.450) L 06/15/20 04:20 ABG pCO2 33.7 mm Hg 06/15/20 04:20 ABG pO2 149.0 mm Hg (80.0-90.0) H 06/15/20 04:20 ABG HCO3 17.9 mmol/L (20.0-26.0) L 06/15/20 04:20 ABG O2 Saturation 98.7 % (95.0-99.0) 06/15/20 04:20 Calcium 8.1 mg/dL (8.4-10.2) L 06/15/20 04:56 Magnesium 2.10 mg/dL (1.7-2.3) 06/14/20 15:50 Medications & Allergies - Medications Allergies/Adverse Reactions: Allergies Unable to Assess Allergy (Unverified 06/13/20 17:34) pt received in cardiac arrest Active Medications: Generic Name Dose Route Start Last Admin Trade Name Freq PRN Reason Stop Dose Admin Acetaminophen 650 mg 06/13/20 22:48 Tylenol PO Q4H PRN Pain MILD(1-3)/Fever >100.5/OMER Albuterol 2.5 mg 06/13/20 23:07 Proventil IH Q3HRT PRN Wheezing Albuterol/Ipratropium 1 ampul 06/14/20 08:00 06/15/20 09:17 Duoneb *Not For Prn Use* IH 1 ampul QIDRT DARREN Administration Lipase/Protease/Amylase 1 each 06/13/20 22:[address] 10,500 Unit FEEDTUBE PRN PRN For Clogged Feeding Tube Famotidine 20 mg 06/14/20 10:00 06/15/20 10:35 Pepcid IV 20 mg DAILY DARREN Administration Hydrophilic Ointment 1 applic 06/13/20 15:11 Vaseline Lip Therapy TP Q2HR PRN Dry Lips Propofol 500 mg in 50 mls @ 2.379 mls/hr 06/13/20 20:00 06/14/20 04:49 Propofol IV 5 mcg/kg/min TITR DARREN 2.379 mls/hr Administration Protocol 5 MCG/KG/MIN Norepinephrine 4 mg in 250 mls @ 7.5 mls/hr 06/13/20 16:00 06/15/20 06:19 Levophed Drip 4 Mg/Ns 250 Ml IV 30 mcg/min TITR DARREN 112.5 mls/hr Administration Protocol 2 MCG/MIN Levetiracetam 1,000 mg/ 110 mls @ 400 mls/hr 06/13/20 22:00 06/15/20 10:34 Dextrose IV 400 mls/hr Q12HR DARREN Administration Heparin Sodium/Sodium Chloride 25,000 unit in 500 mls @ 20 mls/hr 06/13/20 23:00 06/15/20 02:08 Heparin/ 0.45% Nacl-25,000 Unit/500 Ml IV 1,000 units/hr TITRATE DARREN 20 mls/hr Administration Protocol 1,000 UNITS/HR Vasopressin 20 unit/ Sodium 101 mls @ 9.09 mls/hr 06/14/20 11:00 06/14/20 09:55 Chloride IV 0.03 units/min TITR DARREN 9.09 mls/hr Administration Protocol 0.03 UNITS/MIN Dopamine HCl/Dextrose 800 mg in 250 mls @ 2.977 mls/hr 06/14/20 14:00 06/15/20 02:30 Intropin Drip 800 Mg/D5w 250 Ml IV 6 mcg/kg/min TITR DARREN 8.93 mls/hr Titration Protocol 2 MCG/KG/MIN Sodium Bicarbonate 150 meq/ 1,150 mls @ 100 mls/hr 06/14/20 14:30 06/15/20 02:08 Dextrose IV 06/17/20 01:59 100 mls/hr DIRECT DARREN Administration Sodium Chloride 100 mls @ 999 mls/hr 06/14/20 18:21 Nacl 0.9% IV DAREK PRN Hypotension Sodium Chloride 2,000 mls @ 150 mls/hr 06/14/20 21:15 06/14/20 22:37 Nacl 0.9% 1000 Ml IV 150 mls/hr DIRECT DARREN Administration Cefepime HCl 2 gm in 100 mls @ 200 mls/hr 06/15/20 10:00 06/15/20 10:35 Cefepime/Ns 2 Gm/100 Ml IV 200 mls/hr Q24H DARREN Administration Protocol Lorazepam 1 mg 06/13/20 19:51 06/13/20 20:59 Ativan IV 1 mg Q1H PRN Administration Agitation Metoclopramide HCl 10 mg 06/13/20 22:48 Reglan IV Q6H PRN Nausea And Vomiting Morphine Sulfate 2 mg 06/13/20 22:48 Morphine IV Q4H PRN Pain, Moderate (4-6) Multi-Ingred Cream/Lotion/Oil/Oint 1 applic 06/13/20 15:11 Artificial Tears Ophth Oint OU Q4HR PRN Dry Eye(s) Ondansetron HCl 4 mg 06/13/20 22:48 Zofran IV Q8H PRN Nausea And Vomiting Simple Syrup 15 ml 06/13/20 22:56 Simple Syrup FEEDTUBE PRN PRN Hypoglycemia Simple Syrup 30 ml 06/13/20 22:56 Simple Syrup FEEDTUBE PRN PRN Hypoglycemia Sodium Bicarbonate 325 mg 06/13/20 22:56 Sodium Bicarbonate FEEDTUBE PRN PRN For Clogged Feeding Tube Sodium Chloride 10 ml 06/14/20 10:00 06/15/20 09:48 Sodium Chloride Flush Syringe 10 Ml IV 10 ml BID DARREN Administration Sodium Chloride 10 ml 06/13/20 22:48 Sodium Chloride Flush Syringe 10 Ml IV PRN PRN LINE FLUSH
[2020-06-15] MEDS ORDERED: SODIUM CHLORIDE 0.9% 100 ML IV PRN (13:00)
--- NOTE | 2020-06-16 11:56 | Death Summary ---
Summary - Providers Date of service: 06/16/20 Consults: 06/13/20 19:59 Consult to Physician [CONS] Routine Comment: Consulting Provider: GABY STEWART Physician Instructions: Reason For Exam: S/p cardiac arrest 06/13/20 22:56 Consult to Dietitian/Nutrition [CONS] Routine Physician Instructions: Assess nutrtn needs, initiate, modify, manage TF Reason For Exam: Reason for Consult: Write/Manage Tube Feeding Reason for Consult: Write/Manage Tube Feeding Consult to Physician [CONS] Routine Comment: Consulting Provider: BRYANNA ZEPEDA Physician Instructions: Reason For Exam: NSTEMI 06/14/20 06:29 Consult to Physician [CONS] Routine Comment: Consulting Provider: RYAN GLEASON Physician Instructions: Reason For Exam: anoxic encephalopathy 06/14/20 09:56 Consult to Physician [CONS] Routine Comment: Consulting Provider: VU DELEON Physician Instructions: Reason For Exam: hyperkalemia 06/14/20 14:19 Consult to Physician [CONS] Routine Comment: Consulting Provider: BENY JAMES Physician Instructions: Reason For Exam: Severe Sepsis; PCAP; S/P Cardiac arrest 06/14/20 18:31 Consult to Interventional Radiology [CONS] Stat Consulting Provider: RUBY ATKINSON Reason For Exam: vascath placement for kidney failure Notified:: Dr. Atkinsno 06/15/20 05:51 Consult to Physician [CONS] Routine Comment: Consulting Provider: BENY JAMES Physician Instructions: Reason For Exam: sepsis Attending: DIRK BRIONES - summary Date of admission: 06/13/20 15:46 Date of : 06/15/20 Disposition: 71 years old male with unknown past medical history brought to the ED via EMS on 06/13/2020 [place] in a full cardiac arrest. Per EMS patient walked and to ask a question and then collapsed all of a sudden. Initially EMS found the patient in asystole, patient was shocked twice, unclear if he went into V. fib or V. tach. Patient regained circulation after second shock. In route to the hospital, patient became pulseless again and was found in PEA. ACLS was continued in the emergency room. Patient was intubated. Patient started on Levophed. On arrival, temperature 99.8, HR 86, RR 34, O2 sat 91%, BP 153/63. Initial WBC 14.1. Lactate 7.6. Creatinine 1.5, increased to 3.4. Troponin increased to 0.176. AST 53 now 575. ALT 35 now 248. D-dimer > 10,000. CT of the head shows no acute abnormality. Chest x-ray showed increased interstitial markings. The patient was admitted with diagnosis of acute hypoxic respiratory failure, cardiopulmonary arrest, anoxic encephalopathy,NSTEMI, shock--septic +/-cardiogenic. Hospital course along with admitting/discharge diagnoses below. Acute hypoxic Respiratory failure S/p cardiac arrest intubated Vent support [employer] Officer consulted Shockseptic/+/-cardiogenic cardiopulmonary arrest Patient revived and on Pressors Intubated Sedated Acute renal failure Hyperkalemia liver failure MSOF metabolic acidosis/lactic acidosis anoxic encephalopathy EEG pending Given sudden collapse and revival by EMS Neuro consulted seizure disorder versus myoclonic jerks NSTEMI (non-ST elevated myocardial infarction) Patient on Heparin drip Troponins elevated Cauise of Cardiac arrest maybe vfib/severe CAD Cardiology consulted 06/14/20. Pt on maximal dosage of levophed, vasopressin and dopamine. Cardiology D/cd amiodarone in setting of liver shock and unclear rhythm in the field per EMS. Cont. heparin gtt in setting of CE elevation. Cont to trend Christy and f/u ECG in AM. Initiate ASA if PO access is obtained. No BB in setting of hypotension. No s tatin in setting of elevated LFTs. F/U echo Nephrology has been consulted in setting of ARF an d hyperkalemia. Insulin/D50/calcium gluconate and kayexalate given. COVID-19 testing per primary team in setting of infiltrate on CXR and leukocytosis. Pt is unresponsive, not sedated, anoxic brain injury suspected. Neurology has been consulted. Overall poor prognosis. 06/15/2020. Continue pressors to maintain MAP > 65. Continue IV antibiotics for sepsis/septic shock. ID following. Vas-Cath placed yesterday for emergent hemodialysis in the setting of ARF and severe hyperkalemia. Continue b icarbonate drip. Nephrology following. Patient with type II DE secondary to sepsis/septic shock. Also, patient with significant lactic acidosis related to cardiopulmonary arrest and septic shock. Continue heparin and amiodarone per cardiology recommendations. EEG ordered for anoxic brain injury. Continue Keppra for? Seizures versus myoclonic jerks. Neurology following and reports overall prognosis is poor 06/15/2020--nursing reports patient became bradycardic and then asystolic and ACLS protocol commenced. Patient did not have ROSC and was pronounced at 1224p. Please see code note for details.
== END 2020-06-15 16:30 | DRG 871 ==
LOC: ED 14:12 → CC1 15:46
PROVIDERS: ADMIT Internal Medicine; ATTEND Hospitalist
PROC: 0BH17EZ Insertion of Endotracheal Airway into Trachea, Via Natural or Artificial Opening (ICD-10-PCS; principal; 2020-06-13)
PROC: 5A1945Z Respiratory Ventilation, 24-96 Consecutive Hours (ICD-10-PCS; 2020-06-13)
PROC: 02HV33Z Insertion of Infusion Device into Superior Vena Cava, Percutaneous Approach (ICD-10-PCS; 2020-06-13)
PROC: B548ZZA Ultrasonography of Superior Vena Cava, Guidance (ICD-10-PCS; 2020-06-13)
PROC: 5A1D70Z Performance of Urinary Filtration, Intermittent, Less than 6 Hours Per Day (ICD-10-PCS; 2020-06-14)
PROC: 4A033R1 Measurement of Arterial Saturation, Peripheral, Percutaneous Approach (ICD-10-PCS; 2020-06-14)
PROC: 02HV33Z Insertion of Infusion Device into Superior Vena Cava, Percutaneous Approach (ICD-10-PCS; 2020-06-14)
PROC: B548ZZA Ultrasonography of Superior Vena Cava, Guidance (ICD-10-PCS; 2020-06-14)
DX: A41.9 Sepsis, unspecified organism (principal); J96.01 Acute respiratory failure with hypoxia; I21.4 Non-ST elevation (NSTEMI) myocardial infarction; J18.9 Pneumonia, unspecified organism; R65.21 Severe sepsis with septic shock; G92 Toxic encephalopathy; K72.00 Acute and subacute hepatic failure without coma; G93.1 Anoxic brain damage, not elsewhere classified; N17.9 Acute kidney failure, unspecified; E87.2 Acidosis; Z20.828 Contact with and (suspected) exposure to other viral communicable diseases; I46.9 Cardiac arrest, cause unspecified; I95.9 Hypotension, unspecified; G40.909 Epilepsy, unspecified, not intractable, without status epilepticus; D72.829 Elevated white blood cell count, unspecified; E66.9 Obesity, unspecified; I45.10 Unspecified right bundle-branch block; Z79.899 Other long term (current) drug therapy; Z79.891 Long term (current) use of opiate analgesic
CPT/HCPCS: 36415; 36600; 70450; 71045; 80048; 80053; 80061; 80074; 80076; 82140; 82550; 82553; 82728; 82803; 83036; 83615; 83735; 84484; 85007; 85014; 85018; 85025; 85027; 85049; 85379; 85520; 85610; 85730; 86140; 86689; 87040; 93005; 94002; 94003; 94640; G0378; J0171; J0282; J0692; J1265; J1644; J1815; J1953; J1956; J2060; J2704; J7030; J7040; J7060; J7070; U0003